=== PATIENT | male | born 1935 | race Caucasian/White ===

== ENCOUNTER 2017-08-04 12:56 | Outpatient (CLI) ==
[2015-11-02 16:17] VITALS: BMI 30.2
[2017-08-04 13:29] LABS: BASOPHILS # (AUTO) 0.1 K/uL (0-0.2); BASOPHILS % (AUTO) 0.4 % (0.0-3.0); EOSINOPHILS # (AUTO) 0.2 K/ul (0.0-0.7); EOSINOPHILS % (AUTO) 1.4 % (0.0-7.0); HEMATOCRIT 46.9 % (42.0-52.0); HEMOGLOBIN 15.8 g/dl (14.0-18.0); IMMATURE GRANULOCYTE % (AUTO) 0.4 % (0.0-5.0); LYMPHOCYTES # (AUTO) 3.6 K/uL (0.60-3.4); MEAN CORPUSCULAR HEMOGLOBIN 30.1 pg (27.0-31.0); MEAN CORPUSCULAR HGB CONC 33.7 (31.8-35.4); MEAN CORPUSCULAR VOLUME 89.3 fl (80.0-94.0); MONOCYTES # (AUTO) 1.5 K/uL (0.4-2.0); MONOCYTES % (AUTO) 10.9 (0-10); NEUTROPHILS # (AUTO) 8.5 K/ul (2.0-6.9); NEUTROPHILS % (AUTO) 60.9; PLATELET COUNT 241 10^3/uL (140-440); RED BLOOD COUNT 5.25 10^6/ul (4.70-6.10); WHITE BLOOD COUNT 13.89 K/ul (4.2-10.2)
--- NOTE | 2017-08-04 13:35 | DI ---
Exam: Three x-rays of the chest. Comparison: 01/21/2016. Reason for exam: Shortness of breath. FINDINGS: No pneumothorax, pleural effusion, or focal consolidation. The cardiac silhouette is not enlarged. Old granulomas disease is seen within the lung parenchyma and mediastinum. Similar appe aring scarring changes are seen in the right apex. Impression: No acute cardiopulmonary process.
[2017-08-04] MEDS ORDERED: ALBUTEROL 0.083% NEB NEB STA (13:39)
[2017-08-04 13:43] LABS: PROTHROMBIN TIME 15.4 SEC (9.3-11.0)
[2017-08-04 13:48] LABS: BILIRUBIN,URINE 1+ (NEGATIVE); KETONES,URINE Trace (NEGATIVE); LEUKOCYTE ESTERASE ,URINE Negative (NEGATIVE); NITRITE,URINE Negative (NEGATIVE); PH,URINE 5.5 (5-9); PROTEIN,URINE 1+ (NEGATIVE); URINE, BLOOD Negative (NEGATIVE)
[2017-08-04 13:49] LABS: ADD URINE MICROSCOPIC YES
[2017-08-04 13:56] LABS: ALBUMIN 3.5 g/dL (3.4-5.0); ALBUMIN/GLOBULIN RATIO 0.97; ANION GAP 21.7; BILIRUBIN,TOTAL 1.58 mg/dL (0.00-1.20); BUN/CREATININE RATIO 13.17; CHOL/HDL RATIO 4.4 (4.5-6.4); CREATININE 1.29 mg/dL (0.60-1.10); POTASSIUM 4.7 mmol/L (3.5-5.1); TOTAL PROTEIN 7.1 g/dL (5.8-8.1)
== END 2017-08-04 12:57 | disposition home or self-care (01) ==
LOC: CAR 12:56
PROVIDERS: ATTEND Emergency Medicine
DX: Z51.81 Encounter for therapeutic drug level monitoring (principal); Z79.01 Long term (current) use of anticoagulants; R06.02 Shortness of breath; I10 Essential (primary) hypertension; I49.9 Cardiac arrhythmia, unspecified; R35.0 Frequency of micturition
CPT/HCPCS: 36415; 80053; 80061; 81001; 84443; 85025; 85610; 94640

== ENCOUNTER 2017-08-10 08:14 | Outpatient (CLI) ==
[2015-11-02 16:17] VITALS: BMI 30.2
[2017-08-10 08:47] LABS: PROTHROMBIN TIME 16.2 SEC (9.3-11.0)
== END 2017-08-10 08:15 | disposition home or self-care (01) ==
LOC: LAB 08:14
PROVIDERS: ATTEND Emergency Medicine
DX: Z51.81 Encounter for therapeutic drug level monitoring (principal); Z79.01 Long term (current) use of anticoagulants
CPT/HCPCS: 36415; 85610

== ENCOUNTER 2017-08-16 13:57 | Outpatient (CLI) ==
[2015-11-02 16:17] VITALS: BMI 30.2
[2017-08-16 15:39] LABS: PROTHROMBIN TIME 21.8 SEC (9.3-11.0)
== END 2017-08-16 13:58 | disposition home or self-care (01) ==
LOC: LAB 13:57
PROVIDERS: ATTEND Emergency Medicine
DX: Z51.81 Encounter for therapeutic drug level monitoring (principal); Z79.01 Long term (current) use of anticoagulants
CPT/HCPCS: 36415; 85610

== ENCOUNTER 2017-12-29 12:56 | Outpatient (CLI) ==
[2015-11-02 16:17] VITALS: BMI 30.2
== END 2017-12-29 12:57 | disposition home or self-care (01) ==
LOC: LAB 12:56
PROVIDERS: ATTEND Emergency Medicine
DX: I10 Essential (primary) hypertension (principal); E78.5 Hyperlipidemia, unspecified; R97.20 Elevated prostate specific antigen [PSA]; Z79.899 Other long term (current) drug therapy
CPT/HCPCS: 36415; 80053; 80061; 81001; 84153; 85025

== ENCOUNTER 2018-04-27 10:21 | Outpatient (CLI) ==
[2015-11-02 16:17] VITALS: BMI 30.2
== END 2018-04-27 10:22 | disposition home or self-care (01) ==
LOC: FCC-LAB 10:21
PROVIDERS: ATTEND General Practice
DX: I10 Essential (primary) hypertension (principal); I49.9 Cardiac arrhythmia, unspecified; R09.89 Other specified symptoms and signs involving the circulatory and respiratory systems; J44.9 Chronic obstructive pulmonary disease, unspecified; M54.5 Low back pain; Z79.899 Other long term (current) drug therapy
CPT/HCPCS: 36415; 80053; 80061; 81001; 85025

== ENCOUNTER 2018-09-14 09:33 | Outpatient (CLI) ==
[2015-11-02 16:17] VITALS: BMI 30.2
== END 2018-09-14 09:34 | disposition home or self-care (01) ==
LOC: RHC-LAB 09:33
PROVIDERS: ATTEND General Practice
DX: I10 Essential (primary) hypertension (principal); I49.9 Cardiac arrhythmia, unspecified; R09.89 Other specified symptoms and signs involving the circulatory and respiratory systems; J44.9 Chronic obstructive pulmonary disease, unspecified; R97.20 Elevated prostate specific antigen [PSA]; Z79.899 Other long term (current) drug therapy
CPT/HCPCS: 36415; 80053; 80061; 81001; 85025

== ENCOUNTER 2019-01-16 08:12 | Outpatient (CLI) ==
[2015-11-02 16:17] VITALS: BMI 30.2
== END 2019-01-16 08:13 | disposition home or self-care (01) ==
LOC: RHC-LAB 08:12 → FCC-LAB 08:13
PROVIDERS: ATTEND General Practice
DX: J44.9 Chronic obstructive pulmonary disease, unspecified (principal); I10 Essential (primary) hypertension; R09.89 Other specified symptoms and signs involving the circulatory and respiratory systems; Z79.899 Other long term (current) drug therapy
CPT/HCPCS: 36415; 80053; 80061; 81001; 85025

== ENCOUNTER 2019-02-10 18:00 | Inpatient (IN) ==
[2019-02-10] MEDS ORDERED: DUONEB NEB STA (19:01)
--- NOTE | 2019-02-10 19:03 | ED.PDOC ---
General ED Provider: Dr. GEORGES SYLVESTER Chief Complaint: Shortness of Air Stated Complaint: Short of breath. Onset this morning. Has experienced progressive dyspnea all day as he participated in various activities.(going to [employer] and a ). 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 Time Seen by Physician: 18:30 Mode of Arrival: Wheelchair Information Source: Patient, Family [facility] and Triage Documentation Reviewed and Agree: Yes Does patient meet sepsis criteria?: No System Inflammatory Response Syndrome: Not Applicable Sepsis Protocol: For patient's 13 years and over: Temp is 96.8 and below OR 101 and greater Pulse >90 BPM Resp >20/minute Acutely Altered Mental Status Are patient's symptoms suggestive of a new infection, such as: -Pneumonia -Skin, Soft Tissue -Endocarditis -UTI -Bone, Joint Infection -Implantable Device -Acute Abdominal Infection -Wound Infection -Meningitis -Blood Stream Catheter Infection -Unknown Respiratory Complaint Exam - Shortness of Air Complaint/Exam Onset/Duration: 0800 Symptoms Are: Still present Timing: Constant Initial Severity: Mild Current Severity: Moderate Character: Reports: Dyspnea at rest, Dyspnea on exertion Aggravating: Reports: Movement, Recumbent position Alleviating: Reports: Upright position Associated Signs and Symptoms: Reports: Wheezing, Dizziness. Denies: Cough, Chest pain with cough, Chest pain, Fever, Chills, Diaphoresis, Nasal congestion , Calf pain, Calf swelling, Edema, Rapid breathing, Labored breathing, Decreased intake Related History: Reports: Similar episode History of Healthcare-Acquired Pneumonia: No Pulmonary Embolism Risk Factors: Reports: None Cardiac Risk Factors: Reports: CAD, Elevated lipids, Hypertension, CHF Pseudomonas Risk Factors: Reports: None Tuberculosis Risk Factors: Reports: None Recent Stress Test: No Respiratory Distress: None Stridor Present: No Tracheal Deviation: No Subcutaneous Emphysema: No Accessory Muscle Use: No Retractions: Not Present Diminished Breath Sounds: Yes Unable to Speak Full Sentences: No Fatigue: Yes Leg Swelling: No Daiana's Sign Present: No Grunting Respirations: No Kussmaul Respirations: No Differential Diagnoses: CHF, Pulmonary Edema, COPD Exacerbation, Pulmonary Embolism, URI Review of Systems - Review Of Systems Constitutional: Reports: No symptoms, Weakness Eyes: Reports: No symptoms Ears, Nose, Mouth, Throat: Reports: No symptoms Respiratory: Reports: No symptoms, Orthopnea, Short of air, Wheezing Cardiac: Reports: No symptoms, Irregular heart rate GI: Reports: No symptoms : Reports: No symptoms Musculoskeletal: Reports: No symptoms Skin: Reports: No symptoms Neurological: Reports: No symptoms Endocrine: Reports: No symptoms Hematologic/Lymphatic: Reports: No symptoms All Other Systems: Reviewed and Negative Past Medical History - Past Medical History Previously Healthy: Yes Endocrine: Reports: None Cardiovascular: Reports: Hypertension, A-Fib Respiratory: Reports: COPD Hematological: Reports: None Gastrointestinal: Reports: None Genitourinary: Reports: None Neuro/Psych: Reports: None, Unknown Musculoskeletal: Reports: None Cancer: Reports: None - Surgical History General Surgical History: Reports: Unknown - Family History Family History: Reports: Unknown - Social History Smoking Status: Former smoker Hx Substance Use: No Alcohol Screening: None Physical Exam - Physical Exam Appearance: Well-appearing, No pain distress, Well-nourished, Obese Ill-appearing: Mild Pain Distress: None Eyes: ERNIE, EOMI, Conjunctiva clear ENT: Ears normal, Nose normal, Oropharynx normal Neck: Supple (Neg jvd) Respiratory: Airway patent, Breath sounds clear, Breath sounds equal, Respirations nonlabored, Wheezes Cardiovascular: RRR, Pulses normal, No rub, No murmur GI/: Soft, Nontender, No masses, Bowel sounds normal, No Organomegaly Musculoskeletal: Normal strength, ROM intact, No edema, No calf tenderness Skin: Warm, Dry, Normal color Neurological: Sensation intact, Motor intact, Reflexes intact, Cranial nerves intact, Alert, Oriented Psychiatric: Affect appropriate, Mood appropriate Interpretation - Radiology Interpretation Radiology Results: No acute changes Exam Interpreted: Portable CXR Exam Interpreted: CT Scan (NO PE/Nodular foci RLL and STEVEN warrant follow up ) Physician Notification - Case Discussed Physician Notified: Dr Lennon Time of Notification: 21:00 (agrees with admit) Physician Notified: Dr Simmons covering until results CTA chest obtained Time of Notification: 21:20 Critical Care Note - Critical Care Note Total Time (mins): 120 Course - Course Hematology/Chemistry: 02/11/19 03:15 02/11/19 03:15 Orders, Labs, Meds: Lab Review 02/10/19 02/10/19 02/10/19 18:10 19:14 19:42 WBC 6.38 RBC 4.95 Hgb 14.6 Hct 45.1 MCV 91.1 MCH 29.5 MCHC 32.4 RDW Coeff of Angeline 13.5 Plt Count 122 L Immature Gran % (Auto) 0.3 Neut % (Auto) 57.3 Lymph % (Auto) 29.5 [place] % (Auto) 11.0 H Eos % (Auto) 1.3 Baso % (Auto) 0.6 Immature Gran # (Auto) 0.0 Neut # (Auto) 3.7 Lymph # (Auto) 1.9 [place] # (Auto) 0.7 Eos # (Auto) 0.1 Baso # (Auto) 0.0 PT INR D-Dimer (Manual) Puncture Site Rbrach O2 Saturation 94.0 L ABG pH 7.376 ABG pCO2 42.0 ABG pO2 72.0 L ABG HCO3 24.6 ABG Total CO2 26 ABG Base Excess -1 Wilmer Test + FiO2 % 21.0 Sodium Potassium Chloride Carbon Dioxide Anion Gap BUN Creatinine Estimated GFR (MDRD) BUN/Creatinine Ratio Glucose Lactic Acid Calcium Total Bilirubin AST ALT Alkaline Phosphatase Troponin I NT-Pro-B Natriuret Pep Total Protein Albumin Globulin Albumin/Globulin Ratio Procalcitonin Urine Color Yellow Urine Clarity Clear Urine pH 5.5 Ur Specific [place] 1.020 Urine Protein Negative Urine Glucose (UA) Negative Urine Ketones Negative Urine Blood Trace-lysed Urine Nitrite Negative Urine Bilirubin Negative Urine Urobilinogen 1.0 Ur Leukocyte Esterase Negative Urine Microscopic RBC 0-2 Urine Microscopic WBC 0-2 Ur Squamous Epith Cells 0-2 Urine Bacteria Trace 02/10/19 02/10/19 02/10/19 19:42 19:42 19:42 WBC RBC Hgb Hct MCV MCH MCHC RDW Coeff of Angeline Plt Count Immature Gran % (Auto) Neut % (Auto) Lymph % (Auto) [place] % (Auto) Eos % (Auto) Baso % (Auto) Immature Gran # (Auto) Neut # (Auto) Lymph # (Auto) [place] # (Auto) Eos # (Auto) Baso # (Auto) PT INR D-Dimer (Manual) 516.32 Puncture Site O2 Saturation ABG pH ABG pCO2 ABG pO2 ABG HCO3 ABG Total CO2 ABG Base Excess Wilmer Test FiO2 % Sodium 138.4 Potassium 4.38 Chloride 101.1 Carbon Dioxide 28.7 Anion Gap 12.98 BUN 16.9 Creatinine 1.09 Estimated GFR (MDRD) 64.00 BUN/Creatinine Ratio 15.50 Glucose 111.9 H Lactic Acid Calcium 9.50 Total Bilirubin 1.36 H AST 31.8 ALT 21.4 Alkaline Phosphatase 89.0 Troponin I < 0.012 NT-Pro-B Natriuret Pep 826.000 H Total Protein 6.94 Albumin 4.24 Globulin 2.70 Albumin/Globulin Ratio 1.57 Procalcitonin < 0.05 Urine Color Urine Clarity Urine pH Ur Specific [place] Urine Protein Urine Glucose (UA) Urine Ketones Urine Blood Urine Nitrite Urine Bilirubin Urine Urobilinogen Ur Leukocyte Esterase Urine Microscopic RBC Urine Microscopic WBC Ur Squamous Epith Cells Urine Bacteria 02/10/19 02/10/19 19:42 19:42 WBC RBC Hgb Hct MCV MCH MCHC RDW Coeff of Angeline Plt Count Immature Gran % (Auto) Neut % (Auto) Lymph % (Auto) [place] % (Auto) Eos % (Auto) Baso % (Auto) Immature Gran # (Auto) Neut # (Auto) Lymph # (Auto) [place] # (Auto) Eos # (Auto) Baso # (Auto) PT 18.8 H INR 1.92 D-Dimer (Manual) Puncture Site O2 Saturation ABG pH ABG pCO2 ABG pO2 ABG HCO3 ABG Total CO2 ABG Base Excess Wilmer Test FiO2 % Sodium Potassium Chloride Carbon Dioxide Anion Gap BUN Creatinine Estimated GFR (MDRD) BUN/Creatinine Ratio Glucose Lactic Acid 1.12 Calcium Total Bilirubin AST ALT Alkaline Phosphatase Troponin I NT-Pro-B Natriuret Pep Total Protein Albumin Globulin Albumin/Globulin Ratio Procalcitonin Urine Color Urine Clarity Urine pH Ur Specific [place] Urine Protein Urine Glucose (UA) Urine Ketones Urine Blood Urine Nitrite Urine Bilirubin Urine Urobilinogen Ur Leukocyte Esterase Urine Microscopic RBC Urine Microscopic WBC Ur Squamous Epith Cells Urine Bacteria Orders Category Date Time Status ABG DRAW REQUEST Stat CARDIO 02/10/19 19:01 Completed ECHOCARDIOGRAM 2D-M MODE Routine CARDIO 02/11/19 21:07 Completed EKG-(ED ONLY) Stat CARDIO 02/10/19 18:58 Completed NEBULIZER TREATMENT Routine CARDIO 02/10/19 21:06 Active NEBULIZER TREATMENT Stat CARDIO 02/10/19 19:02 Completed OXYGEN Routine CARDIO 02/10/19 21:04 Active ACTIVITY .BR with BRP CARE 02/10/19 21:05 Active INTAKE & OUTPUT Q8HR CARE 02/10/19 21:04 Active INTAKE & OUTPUT Q8HR CARE 02/10/19 21:07 Completed NPO REMINDER: IMAGING ONCE CARE 02/10/19 20:58 Completed VITAL SIGNS Q8HR CARE 02/10/19 21:04 Active REGULAR DIET DIETARY 02/10/19 Breakfast Ordered ABG Stat LAB 02/10/19 18:10 Completed BLOOD CULTURE Stat LAB 02/10/19 19:42 Results CBC W/ AUTO DIFF DAILY@0600 LAB 02/11/19 03:15 Completed CBC W/ AUTO DIFF DAILY@0600 LAB 02/12/19 06:00 Ordered CBC W/ AUTO DIFF Stat LAB 02/10/19 19:42 Completed CMP [COMPREHENSIVE METABOLIC PANEL] Stat LAB 02/10/19 19:42 Completed COMPREHENSIVE METABOLIC PANEL DAILY@0600 LAB 02/12/19 06:00 Ordered CREATINE KINASE Q8H LAB 02/11/19 03:15 Completed CREATINE KINASE Q8H LAB 02/11/19 11:10 Completed D-DIMER Stat LAB 02/10/19 19:42 Completed LACTIC ACID Stat LAB 02/10/19 19:42 Completed NT-PROBNP Stat LAB 02/10/19 19:42 Completed PROCALCITONIN Stat LAB 02/10/19 19:42 Completed PT WITH INR DAILY@0600 LAB 02/11/19 03:15 Completed PT WITH INR DAILY@0600 LAB 02/12/19 06:00 Ordered PT WITH INR Stat LAB 02/10/19 19:42 Completed SPUTUM CULTURE Stat LAB 02/10/19 19:58 Results TROPONIN I Q8H LAB 02/11/19 03:15 Completed TROPONIN I Q8H LAB 02/11/19 11:10 Completed TROPONIN I Stat LAB 02/10/19 19:42 Completed UA [URINALYSIS C & S IF INDICATED] Stat LAB 02/10/19 19:14 Completed 0.9 % Sodium Chloride [Saline Flush] MEDS 02/10/19 19:01 Discontinued 1 syr IVF PRN PRN Budesonide/Formoterol Fumarate [Symbicort 160-4.5 Mcg MEDS 02/11/19 09:00 Active Inhaler] 2 puff IH BID Enoxaparin Sodium [Lovenox] MEDS 02/10/19 21:30 Discontinued 30 mg SUBCUT DAILY Furosemide [Lasix] MEDS 02/10/19 21:11 Discontinued 20 mg IVP ONCE STA Hydrocortisone Sod Succ/Pf [Solu-Cortef 250 mg] MEDS 02/10/19 21:30 Active 125 mg IVP Q6HR Ipratropium/Albuterol Neb [Duoneb] MEDS 02/10/19 19:01 Discontinued 1 vial NEB ONCE STA Ipratropium/Albuterol Neb [Duoneb] MEDS 02/10/19 21:04 Discontinued 1 vial NEB RTQ6H PRN Losartan Potassium [Cozaar] MEDS 02/10/19 21:30 Active 25 mg PO DAILY Propafenone HCl [Rythmol] MEDS 02/10/19 21:15 Discontinued 300 mg PO Q8H Warfarin Sodium [Coumadin] MEDS 02/10/19 21:30 Discontinued 2.5 mg PO SuTuWeFrSa Warfarin Sodium [Coumadin] MEDS 02/11/19 21:12 Active 5 mg PO MoTh@1700 RESUSCITATION STATUS Routine OTHERS 02/10/19 21:04 Ordered CHEST, 1V AP ONLY Stat RADS 02/10/19 18:[address] CHEST PE PROTOCOL Stat RADS 02/10/19 20:56 Completed Medications Generic Name Dose Route Start Last Admin Trade Name Freq PRN Reason Stop Dose Admin Albuterol/Ipratropium 1 vial 02/11/19 00:00 02/11/19 17:09 Duoneb NEB 1 vial RTQ6H JOVI Administration Atorvastatin Calcium 20 mg 02/11/19 09:00 02/11/19 08:38 Lipitor PO 20 mg DAILY JOVI Administration Azithromycin 500 mg 02/11/19 09:00 02/11/19 08:56 Zithromax PO 02/14/19 08:59 500 mg DAILY JOVI Administration Budesonide/Formoterol Fumarate 2 puff 02/11/19 09:00 02/11/19 08:37 Symbicort 160-4.5 Mcg Inhaler IH 2 puff BID JOVI Administration Enalaprilat 1.25 mg 02/10/19 22:39 Vasotec Iv IVP Q6H PRN Systolic >160 Hydrocortisone Sodium Succinate 125 mg 02/10/19 21:30 02/11/19 18:01 Solu-Cortef 250 Mg IVP 125 mg Q6HR JOVI Administration Losartan Potassium 25 mg 02/10/19 21:30 02/11/19 08:38 Cozaar PO 25 mg DAILY JOVI Administration Propafenone HCl 300 mg 02/11/19 13:00 02/11/19 12:39 Rythmol PO 300 mg Q8HR JOVI Administration Sodium Chloride 1 syr 02/11/19 21:00 Saline Flush IVF Q8HR JOVI Warfarin Sodium 5 mg 02/11/19 21:12 Coumadin PO MoTh@1700 JOVI Warfarin Sodium 2.5 mg 02/12/19 17:00 Coumadin PO SuTuWeFrSa@1700 JOVI Discontinued Medications Generic Name Dose Route Start Last Admin Trade Name Freq PRN Reason Stop Dose Admin Albuterol/Ipratropium 1 vial 02/10/19 19:01 02/10/19 19:15 Duoneb NEB 02/10/19 19:02 1 vial ONCE STA Administration Albuterol/Ipratropium 1 vial 02/10/19 21:04 Duoneb NEB RTQ6H PRN Wheezing Enalaprilat 1.25 mg 02/10/19 22:36 02/10/19 23:01 Vasotec Iv IVP 02/10/19 22:37 1.25 mg ONCE STA Administration Enoxaparin Sodium 30 mg 02/10/19 21:30 02/10/19 23:12 Lovenox SUBCUT Not Given DAILY [facility] Furosemide 20 mg 02/10/19 21:11 02/10/19 23:00 Lasix IVP 02/10/19 21:12 20 mg ONCE STA Administration Non-Formulary Medication 300 mg 02/10/19 21:15 02/11/19 05:21 Propafenone Hcl [Rythmol] PO Not Given Q8H [facility] Sodium Chloride 1 syr 02/10/19 19:01 Saline Flush IVF PRN PRN To flush IV Warfarin Sodium 2.5 mg 02/10/19 21:30 02/10/19 23:01 Coumadin PO 2.5 mg SuTuWeFrSa JOVI Administration Vital Signs: Temp Pulse Resp BP Pulse Ox 02/10/19 18:01 100.7 F H 95 H 24 204/69 H 95 Departure - Departure Time of Disposition: 21:15 (Spoke with Dr Lennon who agreed with admit and work up) Disposition: ADMITTED INPATIENT Discharge Problem: Dyspnea, CHF (congestive heart failure) Condition: Serious Pt referred to PMD for follow-up: Yes (Dr Horowitz) IPMP verified?: No Allergies/Adverse Reactions: Allergies No Known Drug Allergies Adverse Reaction (Verified 02/10/19 18:06) Home Medications: Ambulatory Orders Propafenone HCl [Rythmol] 300 mg PO Q8H 07/23/15 Warfarin Sodium [Coumadin] 2.5 mg PO SuTuWeFrSa 07/23/15 Warfarin Sodium [Coumadin] 5 mg PO MoTh 07/23/15 Acetaminophen/Diphenhydramine [Acetaminophen Pm Caplet] 1 each PO BEDTIME Transfer Form Completed: No Disposition Discussed With: Patient, Family, Other (Dr Lennon/Will admit for DR Avilez after CT A PEP obtained)
[2019-02-10] MEDS ORDERED: DUONEB NEB PRN (21:04)
[2019-02-10] MEDS ORDERED: LASIX IVP STA (21:11)
--- NOTE | 2019-02-10 21:11 | DI ---
EXAM: Single-view chest HISTORY: Shortness of breath COMPARISON: Two-view chest 08/04/2017 FINDINGS: The cardiac silhouette is normal in size. Atherosclerotic changes are seen involving the aortic arch.. They are benign granulomatous changes without evidence of active pulmonary disease IMPRESSION: No evidence of active pulmonary disease.
[2019-02-10] MEDS ORDERED: COUMADIN PO SCH (21:30)
[2019-02-10] MEDS ORDERED: LOVENOX SUBCUT SCH (21:30)
--- NOTE | 2019-02-10 22:12 | CT ---
EXAM: CTA thorax HISTORY: Shortness of breath COMPARISON: CT scan chest 11/02/2015 FINDINGS: Contiguous axial images obtained through the chest following uneventful administration int ravenous contrast utilizing 3-mm collimation. Sagittal and coronal reconstructions were imaged and r eviewed.. Source images were utilized to create rotating 3-D MIP images.. The thoracic inlet is unre markable. There are subcentimeter prevascular, pretracheal and right hilar lymph nodes. The heart i s normal in size without pericardial effusion.. There is no evidence of pulmonary embolus. The asce nding aorta is ectatic measuring 3.1 cm. There is dependent atelectasis in the right posterior gutt er region. . There is 1.3 cm nodular focus at the right lung base which merits follow-up pelvis is noted anteriorly within the lobe measuring 7.9 mm. Bone windows reveals no evidence of lytic or constanza tic lesions Impression: No evidence of pulmonary embolus. Nodular foci within the right lower lobe and left upper lobe which merit follow-up to ensure resoluti on.. Dependent atelectasis right lung base
[2019-02-10] MEDS ORDERED: VASOTEC IV IVP STA (22:36)
[2019-02-10] MEDS ORDERED: VASOTEC IV IVP PRN (22:39)
[2019-02-10] MEDS ORDERED: RYTHMOL PO ONE (22:55)
[2019-02-10] MEDS: SOLU-CORTEF 250 MG IVP SCH (23:00)
[2019-02-10] MEDS: COZAAR PO SCH (23:00)
[2019-02-10] MEDS: PROPAFENONE HCL 300 MG PO SCH (23:10)
[2019-02-10 23:30] VITALS: BMI 32.1
[2019-02-11] MEDS: DUONEB NEB SCH ×4 (00:10→17:09)
[2019-02-11] MEDS: SOLU-CORTEF 250 MG IVP SCH ×4 (01:06→18:01)
[2019-02-11] MEDS ORDERED: RYTHMOL PO ONE (05:12)
[2019-02-11] MEDS: PROPAFENONE HCL 300 MG PO SCH (05:21)
[2019-02-11] MEDS: SYMBICORT 160-4.5 MCG INHALER IH SCH ×2 (08:37→21:02)
[2019-02-11] MEDS: COZAAR PO SCH (08:38)
[2019-02-11] MEDS: LIPITOR PO SCH (08:38)
[2019-02-11] MEDS: ZITHROMAX PO SCH (08:56)
--- NOTE | 2019-02-11 09:35 | HP ---
DATE OF SERVICE: 02/11/19 HISTORY OF PRESENT ILLNESS: This 84 year old WHITE/ M was hospitalized 02/10/19 with dyspnea, shortness of breath, cough and congestion with yellowish sputum production. PAST MEDICAL HISTORY: Atrial fibrillation Chronic lung disease Chronic bronchitis Dyslipidemia Hypertension PAST SURGICAL HISTORY: Tonsillectomy as a child Bilateral cataract extraction Previous hemorrhoidectomy REVIEW OF SYSTEMS: CONSTITUTIONAL: Fatigue and tired feeling. No night sweats. No malaise, lethargy. No fever or chills. HEENT: Eyes: No visual changes. No eye pain. No eye discharge. ENT: No runny nose. No epistaxis. No sinus pain. No sore throat. No odynophagia. No ear pain. No congestion. RESPIRATORY: Cough and congestion. Yellow sputum. No hemoptysis. No shortness of breath. CARDIOVASCULAR: No angina symptoms. No CHF symptoms. No atypical chest pain for CAD. No exertional chest discomfort. No palpitations. No PND. No orthopnea. GASTROINTESTINAL: No abdominal pain. No nausea or vomiting. No diarrhea or constipation. No hematemesis. No hematochezia. GENITOURINARY: No urgency. No frequency. No dysuria. No hematuria. No obstructive symptoms. No discharge. No pain. No significant abnormal bleeding. MUSCULOSKELETAL: No musculoskeletal pain. No joint swelling. No arthritis. NEUROLOGICAL: No headache. No neck pain. No syncope. No seizures. No dizziness. PSYCHIATRIC: Not anxious. No depression. No suicidal thoughts. No homicidal thoughts. SKIN: No rash. No lesions. No wounds. ENDOCRINE: No unexplained weight loss. No weight gain. HEMATOLOGIC/LYMPHATIC: No anemia. No purpura. No petechiae. No prolonged or excessive bleeding. No palpable lymph nodes. PERSONAL/FAMILY/SOCIAL HISTORY: , lives with . No alcohol abuse. No illicit drug use. Former smoker. MEDICATIONS: (Home) Coumadin 2.5 mg p.o. SunTuesWedFriSat Coumadin 5 mg p.o. MonThurs Rythmol 300 mg p.o. q.8hr Ventolin HFA 8 gm IH t.i.d. Budesonide/Formoterol 10.2 gm IH b.i.d. Cozaar 25 mg p.o. daily Lipitor 20 mg p.o. daily Acetaminophen/Diphenhydramine one each p.o. bedtime ALLERGIES: NKDA PHYSICAL EXAMINATION: GENERAL: The patient is awake, alert and oriented, lying/sitting in bed in no distress. VITAL SIGNS: Temperature 97.6 F, Pulse 62, Respiratory Rate 14, BP 126/56, Pulse Ox 97% HEENT: Head normocephalic, atraumatic. Eyes: Extraocular muscles are intact. Pupils are equal, round and reactive to light and accommodation. Ears: No lesions. Nose appeared normal. Throat: No exudate or erythema. NECK: Supple. No JVD, no carotid bruit. No lymphadenopathy or thyromegaly. LUNGS: Decreased breath sounds with mild wheeze. Percussion note normal. Chest symmetrical. HEART: S1, S2, no S3. No murmurs. No cyanosis or clubbing. No ascites. Pulses: Dorsalis pedis and posterior tibial pulses +1 to +2 bilaterally. ABDOMEN: Soft. Nontender. Bowel sounds active. No CVA tenderness. No mass felt. EXTREMITIES: No edema. Full range of motion of all extremities, equal. NEUROLOGIC: No focal deficit. Cranial nerves II through XII are grossly intact. No headache, no double vision or headache. SKIN: Not dry. Intact. Turgor - normal. LYMPHATIC: No palpable lymph nodes/no lymphedema. MUSCULOSKELETAL: Normal joints with no swelling. Muscle tone is normal. LAB REVIEW: 02/11/19 03:15: PT 15.6 H, INR 1.58 02/11/19 03:15: WBC 6.33, RBC 4.59 L, Hgb 13.5 L, Hct 41.4 L, MCV 90.2, MCH 29.4 , MCHC 32.6, RDW Coeff of Angeline 13.4, Plt Count 124 L, Immature Gran % (Auto) 0.2 , Neut % (Auto) 64.6, Lymph % (Auto) 27.5, [place] % (Auto) 7.0, Eos % (Auto) 0.2, Baso % (Auto) 0.5, Immature Gran # (Auto) 0.0, Neut # (Auto) 4.1, Lymph # (Auto ) 1.7, [place] # (Auto) 0.4, Eos # (Auto) 0.0, Baso # (Auto) 0.0 02/11/19 03:15: Sodium 136.4, Potassium 4.32, Chloride 100.6, Carbon Dioxide 28.0, Anion Gap 12.12, BUN 18.5, Creatinine 1.19 H, Estimated GFR (MDRD) 58.00, BUN/Creatinine Ratio 15.54, Glucose 146.9 H, Calcium 8.93, Total Bilirubin 1.40 H, AST 29.8, ALT 18.8, Alkaline Phosphatase 76.9, Total Creatine Kinase 212.1 H , CK-MB (CK-2) 2.110, CK-MB (CK-2) % 0.9900, Troponin I < 0.012, Total Protein 6.15 L, Albumin 3.60, Globulin 2.55, Albumin/Globulin Ratio 1.41 02/10/19 19:42: PT 18.8 H, INR 1.92 02/10/19 19:42: Lactic Acid 1.12 02/10/19 19:42: Procalcitonin < 0.05 02/10/19 19:42: D-Dimer (Manual) 516.32 02/10/19 19:42: Sodium 138.4, Potassium 4.38, Chloride 101.1, Carbon Dioxide 28.7, Anion Gap 12.98, BUN 16.9, Creatinine 1.09, Estimated GFR (MDRD) 64.00, BUN/Creatinine Ratio 15.50, Glucose 111.9 H, Calcium 9.50, Total Bilirubin 1.36 H, AST 31.8, ALT 21.4, Alkaline Phosphatase 89.0, Troponin I < 0.012, NT-Pro-B Natriuret Pep 826.000 H, Total Protein 6.94, Albumin 4.24, Globulin 2.70, Albumin/Globulin Ratio 1.57 02/10/19 19:42: WBC 6.38, RBC 4.95, Hgb 14.6, Hct 45.1, MCV 91.1, MCH 29.5, MCHC 32.4, RDW Coeff of Angeline 13.5, Plt Count 122 L, Immature Gran % (Auto) 0.3, Neut % (Auto) 57.3, Lymph % (Auto) 29.5, [place] % (Auto) 11.0 H, Eos % (Auto) 1.3 , Baso % (Auto) 0.6, Immature Gran # (Auto) 0.0, Neut # (Auto) 3.7, Lymph # ( Auto) 1.9, [place] # (Auto) 0.7, Eos # (Auto) 0.1, Baso # (Auto) 0.0 02/10/19 19:14: Urine Color Yellow, Urine Clarity Clear, Urine pH 5.5, Ur Specific [place] 1.020, Urine Protein Negative, Urine Glucose (UA) Negative, Urine Ketones Negative, Urine Blood Trace-lysed, Urine Nitrite Negative, Urine Bilirubin Negative, Urine Urobilinogen 1.0, Ur Leukocyte Esterase Negative, Urine Microscopic RBC 0-2, Urine Microscopic WBC 0-2, Ur Squamous Epith Cells 0- 2, Urine Bacteria Trace 02/10/19 18:10: Puncture Site Rbrach, O2 Saturation 94.0 L, ABG pH 7.376, ABG pCO2 42.0, ABG pO2 72.0 L, ABG HCO3 24.6, ABG Total CO2 26, ABG Base Excess -1, Wilmer Test +, FiO2 % 21.0 ASSESSMENT: 1. Shortness of breath likely from acute bronchitis 2. Chronic lung disease 3. History of cardiomyopathy 4. Atrial fibrillation 5. Hypertension 6. Dyslipidemia 7. BMI 32 8. Sedentary lifestyle PLAN: 1. Telemetry 2. Serial EKGs 3. Cardiac markers 4. Echocardiogram to evaluate LV function 5. Continue all medications 6. Zithromax 500 mg daily for 3 days 7. Steroids 8. PFT 9. Nebs treatment q.6hr 10. Prednisone 20 mg daily CONDITION: Stable Plan and coordination of the patient's care discussed in the presence of Friction Saw Operator and nurse. SCRIBED BY: REN NGUYỄN, Laborer Tin Can scribed while in presence of service performed by Dr. MELODY [facility] on 02/11/19 ([id number]) TIME SPENT: More than 70 minutes. NIVIA
[2019-02-11] MEDS: RYTHMOL PO SCH ×2 (12:39→21:02)
[2019-02-11] MEDS ORDERED: COUMADIN PO SCH (21:12)
[2019-02-12] MEDS: SOLU-CORTEF 250 MG IVP SCH ×2 (00:03→05:43)
[2019-02-12] MEDS: DUONEB NEB SCH ×2 (00:05→04:42)
[2019-02-12] MEDS: RYTHMOL PO SCH (05:44)
[2019-02-12 05:55] VITALS: BP 146/71; TEMP 97.7
[2019-02-12] MEDS: LIPITOR PO SCH (08:49)
[2019-02-12] MEDS: COZAAR PO SCH (08:49)
[2019-02-12] MEDS: ZITHROMAX PO SCH (08:49)
[2019-02-12] MEDS: SYMBICORT 160-4.5 MCG INHALER IH SCH (08:50)
--- NOTE | 2019-02-12 09:10 | DS ---
DATE OF SERVICE: 02/12/19 FINAL DIAGNOSIS: 1. ACUTE BRONCHITIS 2. DYSPNEA 3. CHF 4. COPD, MODERATE PER PFT 2016 5. ATRIAL FIBRILLATION (ON COUMADIN) 6. DYSLIPIDEMIA 7. GERD 8. PNEUMONIA (2013) 9. PREVIOUS SMOKER 10. CATARACT EXTRACTION, BILATERAL 11. TONSILLECTOMY 12. HEMORRHOIDECTOMY LAST VITALS: Temperature 97.7, pulse 73, respiratory rate 16, BP 146/71, Pulse ox 98. DISCHARGE INSTRUCTIONS: Followup appointment has been scheduled with Dr. Avilez, PCP on February 15, 2019 at 1 p.m. at [facility], [place] on [address] MEDICATIONS AT DISCHARGE: Atorvastatin Calcium (Lipitor) 20 mg PO DAILY [facility] Last Admin: 02/12/19 08:49 Dose: 20 mg Azithromycin (Zithromax) 500 mg PO DAILY [facility] Stop: 02/14/19 08:59 Last Admin: 02/12/19 08:49 Dose: 500 mg Budesonide/Formoterol Fumarate (Symbicort 160-4.5 Mcg Inhaler) 2 puff IH BID [facility] Last Admin: 02/12/19 08:50 Dose: 2 puff Losartan Potassium (Cozaar) 25 mg PO DAILY [facility] Last Admin: 02/12/19 08:49 Dose: 25 mg Propafenone HCl (Rythmol) 300 mg PO Q8HR [facility] Last Admin: 02/12/19 05:44 Dose: 300 mg Warfarin Sodium (Coumadin) 5 mg PO MoTh@1700 [facility] Last Admin: 02/11/19 21:02 Dose: 5 mg Warfarin Sodium (Coumadin) 2.5 mg PO SuTuWeFrSa@1700 [facility] DISCONTINUED MEDICATIONS: None NEW PRESCRIPTIONS: Prednisone 20 mg daily for 5 days Azithromycin 500 mg daily for one day DIET INSTRUCTIONS: Regular as tolerated. ACTIVITY: Resume activity. SMOKING: N/A (DOES NOT SMOKE) DISEASE SPECIFIC EDUCATION: Use of steroids and risk of GI upset Medications Appointment HOSPITAL COURSE: 84-year-old White/ male hospitalized with shortness of breath. The patient's D. dimer was borderline positive. CT angiogram was negative for pulmonary embolus. Cardiac markers normal and EKG remained unchanged with no acute changes. The patient had evidence of bronchitis with yellowish sputum , cough and congestion which resolved with steroids, nebs and antibiotics. The patient is up and about. No symptoms of CHF or coronary insufficiency. INR is acceptable. The patient is followed by primary care physician, Dr. Avilez and powder hand. Condition is stable. TIME SPENT: More than 60 minutes. NIVIA
--- NOTE | 2019-02-12 09:11 | PCM.PROG ---
Attending Provider: ATTENDING PROVIDER: [facility] DATE OF SERVICE: 02/12/19 SUBJECTIVE: This 84 year old WHITE/ M was hospitalized 02/10/19 with acute bronchitis; the main complaint was shortness of breath. The patient is doing a lot better. He is up and about. No shortness of breath as he described. REVIEW OF SYSTEMS: CONSTITUTIONAL: No night sweats. No fatigue, malaise, lethargy. No fever or chills. HEENT: Eyes: No visual changes. No eye pain. No eye discharge. ENT: No runny nose. No epistaxis. No sinus pain. No odynophagia. No congestion. RESPIRATORY: No cough, no congestion. No hemoptysis. No shortness of breath. CARDIOVASCULAR: No angina symptoms. No CHF symptoms. No atypical chest pain for CAD. No palpitations. No orthopnea.. GASTROINTESTINAL: No abdominal pain. No nausea or vomiting. No diarrhea or constipation. No hematemesis. No hematochezia. GENITOURINARY: No urgency. No frequency. No dysuria. No hematuria. No obstructive symptoms. No discharge. No pain. No significant abnormal bleeding. MUSCULOSKELETAL: No musculoskeletal pain; no joint swelling. NEUROLOGICAL: Awake, alert, oriented to time, place and person. No headache. No neck pain. No syncope. No seizures. No dizziness. PSYCHIATRIC: Not anxious. No depression. No suicidal thoughts. No homicidal thoughts. SKIN: No rash. No lesions. No wounds. ENDOCRINE: No unexplained weight loss. No weight gain. HEMATOLOGIC/LYMPHATIC: No anemia. No purpura. No petechiae. No prolonged or excessive bleeding. No palpable lymph nodes. PHYSICAL EXAMINATION: GENERAL: The patient is awake, alert and oriented, sitting in bed in no distress. VITAL SIGNS: Temperature 97.7 F, Pulse 73, Respiratory Rate 16, BP 146/71, Pulse Ox 98% HEENT: Head normocephalic, atraumatic. Eyes: Extraocular muscles are intact. Pupils are equal, round and reactive to light and accommodation. Ears: No lesions. Nose appeared normal. Throat: No exudate or erythema. NECK: Supple. No JVD, no carotid bruit. No lymphadenopathy or thyromegaly. LUNGS: Clear to auscultation. Percussion note normal. Chest symmetrical. HEART: S1, S2, no S3. No murmurs. No cyanosis or clubbing. No ascites. Pulses: Dorsalis pedis and posterior tibial pulses +1 to +2 both sides. ABDOMEN: Soft. Non-tender. Bowel sounds active. No CVA tenderness. No mass felt. EXTREMITIES: No edema. Full range of motion of all extremities, equal. NEUROLOGIC: No focal deficit. Cranial nerves II through XII are grossly intact. No headache, no double vision or headache. SKIN: Warm and dry. Intact. Turgor-normal. LYMPHATIC: No palpable lymph nodes/no lymphedema. MUSCULOSKELETAL: Normal joints with no swelling. Muscle tone is normal. LAB REVIEW: 02/12/19 05:11 02/12/19 05:11 02/12/19 05:11: Sodium 135.3, Potassium 3.97, Chloride 102.4, Carbon Dioxide 25.7, Anion Gap 11.17, BUN 24.0 H, Creatinine 0.99, Estimated GFR (MDRD) 72.00, BUN/Creatinine Ratio 24.24, Glucose 164.8 H, Calcium 9.00, Total Bilirubin 0.63 , AST 38.0, ALT 21.5, Alkaline Phosphatase 66.9, Total Protein 6.08 L, Albumin 3.52, Globulin 2.56, Albumin/Globulin Ratio 1.37 02/12/19 05:11: PT 18.4 H, INR 1.87 02/12/19 05:11: WBC 6.47, RBC 4.47 L, Hgb 13.3 L, Hct 39.9 L, MCV 89.3, MCH 29.8 , MCHC 33.3, RDW Coeff of Angeline 13.3, Plt Count 134 L, Immature Gran % (Auto) 0.3 , Neut % (Auto) 70.9, Lymph % (Auto) 25.2, [place] % (Auto) 3.6, Eos % (Auto) 0.0, Baso % (Auto) 0.0, Immature Gran # (Auto) 0.0, Neut # (Auto) 4.6, Lymph # (Auto ) 1.6, [place] # (Auto) 0.2 L, Eos # (Auto) 0.0, Baso # (Auto) 0.0 02/11/19 11:10: Total Creatine Kinase 328.5 H, CK-MB (CK-2) 3.080 H, CK-MB (CK-2 ) % 0.9300, Troponin I < 0.012 ASSESSMENT: 1. Acute bronchitis seems to have resolved. 2. Hypertension. 3. Atrial fibrillation. 4. Dyslipidemia. 5. Chronic lung disease - all the above stable. PLAN: 1. Discharge the patient home on Zithromax and steroids. 2. The patient is to be followed by Dr. Avilez on Monday. Plan and coordination of the patient's care discussed in the presence of Explosives Engineer and nurse. CONDITION: Stable SCRIBED BY: REN NGUYỄN Welding Machine Operator scribed while in presence of service performed by Dr. MELODY [facility] on 02/12/19 ([id number])
--- NOTE | 2019-02-12 09:16 | PN ---
CODING FOR BILLIN02/10/19 ADMISSION DAY - LEVEL 5 02/11/19 INTERMEDIATE 02/12/19 DISCHARGE MTDD
--- NOTE | 2019-02-12 09:26 | CM.DICTOOL ---
ADMISSION: 02/10/19 21:27 DISCHARGE: FEBRUARY 12, 2019 DATE OF SERVICE: 02/12/19 FINAL DIAGNOSIS ACUTE BRONCHITIS DYSPNEA CHF COPD, MODERATE PER PFT 2016 ATRIAL FIBRILLATION (ON COUMADIN) DYSLIPIDEMIA GERD PNEUMONIA (2013) PREVIOUS SMOKER CATARACT EXTRACTION, BILATERAL TONSILLECTOMY HEMORRHOIDECTOMY LAST VITALS Temp Pulse Resp BP Pulse Ox 97.7 F 73 16 146/71 H 98 02/12/19 05:54 02/12/19 05:54 02/12/19 05:54 02/12/19 05:54 02/12/19 05:54 TAKE THESE MEDICATIONS AT HOME Atorvastatin Calcium (Lipitor) 20 mg PO DAILY [facility] Last Admin: 02/12/19 08:49 Dose: 20 mg Azithromycin (Zithromax) 500 mg PO DAILY [facility] Stop: 02/14/19 08:59 Last Admin: 02/12/19 08:49 Dose: 500 mg Budesonide/Formoterol Fumarate (Symbicort 160-4.5 Mcg Inhaler) 2 puff IH BID [facility] Last Admin: 02/12/19 08:50 Dose: 2 puff Losartan Potassium (Cozaar) 25 mg PO DAILY [facility] Last Admin: 02/12/19 08:49 Dose: 25 mg Propafenone HCl (Rythmol) 300 mg PO Q8HR [facility] Last Admin: 02/12/19 05:44 Dose: 300 mg Warfarin Sodium (Coumadin) 5 mg PO MoTh@1700 [facility] Last Admin: 02/11/19 21:02 Dose: 5 mg Warfarin Sodium (Coumadin) 2.5 mg PO SuTuWeFrSa@1700 [facility] ALLERGIES No Known Drug Allergies Adverse Reaction (Verified 02/10/19 18:06) Discontinued Medications NONE NEW PRESCRIPTIONS: PREDNISONE 20 MG DAILY FOR 5 DAYS AZITHROMYCIN 500 MG DAILY FOR 1 DAY SMOKING: NOT APPLICABLE (DOES NOT SMOKE) DISEASE SPECIFIC EDUCATION: USE OF STEROIDS AND RISK OF GI UPSET MEDICATIONS APPOINTMENT LAB REVIEW: 02/12/19 05:11 02/12/19 05:11 02/12/19 05:11: Sodium 135.3, Potassium 3.97, Chloride 102.4, Carbon Dioxide 25.7, Anion Gap 11.17, BUN 24.0 H, Creatinine 0.99, Estimated GFR (MDRD) 72.00, BUN/Creatinine Ratio 24.24, Glucose 164.8 H, Calcium 9.00, Total Bilirubin 0.63 , AST 38.0, ALT 21.5, Alkaline Phosphatase 66.9, Total Protein 6.08 L, Albumin 3.52, Globulin 2.56, Albumin/Globulin Ratio 1.37 02/12/19 05:11: PT 18.4 H, INR 1.87 02/12/19 05:11: WBC 6.47, RBC 4.47 L, Hgb 13.3 L, Hct 39.9 L, MCV 89.3, MCH 29.8 , MCHC 33.3, RDW Coeff of Angeline 13.3, Plt Count 134 L, Immature Gran % (Auto) 0.3 , Neut % (Auto) 70.9, Lymph % (Auto) 25.2, [place] % (Auto) 3.6, Eos % (Auto) 0.0, Baso % (Auto) 0.0, Immature Gran # (Auto) 0.0, Neut # (Auto) 4.6, Lymph # (Auto ) 1.6, [place] # (Auto) 0.2 L, Eos # (Auto) 0.0, Baso # (Auto) 0.0 02/11/19 11:10: Total Creatine Kinase 328.5 H, CK-MB (CK-2) 3.080 H, CK-MB (CK-2 ) % 0.9300, Troponin I < 0.012 PLAN: DISCHARGE HOME DIET: REGULAR TOLERATED ACTIVITY: RESUME ACTIVITY AN APPOINTMENT IS SCHEDULED WITH DR. LIND, PCP ON FEBRUARY 15, 2019 AT 1 PM AT [facility] ON [address] MR. BROWN IS ALERT AND ORIENTED X 3. HE IS INDEPENDENT WITH ACTIVITIES OF DAILY LIVING. MR. BROWN RESIDES AT HOME WITH HIS . HE IS AGREEABLE TO DISCHARGE PLANS FOR TODAY. MR. BROWN IS AMBULATORY IN THE HALLWAY WITHOUT STAFF ASSISTANCE OR USE OF AN ASSISTIVE DEVICE. HE IS TOLERATING A REGULAR DIET WITH INTAKES OF 100%. HE WILL BE DISCHARGED HOME TODAY WITH A PRESCRIPTION FOR PREDNISONE AND AZITHROMYCIN. SKIN IS IN GOOD CONDITION AND FREE OF DECUBITUS ULCERS. MELODY WILKS MD
[2019-02-12] MEDS ORDERED: COUMADIN PO SCH (17:00)
== END 2019-02-12 11:14 | disposition home or self-care (01) | DRG 203 ==
LOC: ED 18:00 → MEDSURG B 21:27
PROVIDERS: ADMIT Internal Medicine; ATTEND Internal Medicine
DX: J20.9 Acute bronchitis, unspecified (principal); J44.9 Chronic obstructive pulmonary disease, unspecified; I50.9 Heart failure, unspecified; I48.91 Unspecified atrial fibrillation; I10 Essential (primary) hypertension; E78.5 Hyperlipidemia, unspecified; K21.9 Gastro-esophageal reflux disease without esophagitis; R06.00 Dyspnea, unspecified; R06.2 Wheezing; R42 Dizziness and giddiness; R53.1 Weakness; R06.01 Orthopnea; Z79.01 Long term (current) use of anticoagulants; Z68.32 Body mass index [BMI] 32.0-32.9, adult
CPT/HCPCS: 36415; 80053; 81001; 82550; 82553; 82803; 83605; 83880; 84145; 84484; 85025; 85379; 85610; 87040; 87070; 93005; 93010; 94640; 99285

== ENCOUNTER 2019-02-15 15:40 | Outpatient (CLI) | END 2019-02-15 15:41 | disposition home or self-care (01) | LOC: RHC-LAB 15:40 | PROVIDERS: ATTEND General Practice | DX: R74.0 Nonspecific elevation of levels of transaminase and lactic acid dehydrogenase [LDH] (principal); R05 Cough; Z09 Encounter for follow-up examination after completed treatment for conditions other than malignant neoplasm | CPT/HCPCS: 36415; 80076; 86710 ==

== ENCOUNTER 2019-02-22 14:17 | Outpatient (CLI) ==
--- NOTE | 2019-02-22 16:36 | CT ---
EXAM: CT chest without contrast HISTORY: Shortness of breath COMPARISON: 02/10/2019 TECHNIQUE: CT chest performed without intravenous contrast. Coronal and sagittal reformatted images obtained FINDINGS: Thoracic inlet unremarkable. Heart normal in size. Coronary calcifications. No pericard ial effusion. Aorta normal in caliber. Moderate atherosclerosis. Small hiatal hernia. Evaluation for lymphadenopathy limited without contrast. No lymphadenopathy identified. Calcified right hilar lymph nodes, consistent with old granulomatous disease. Mild gynecomastia on the right. Visualized portion upper abdomen demonstrates no acute abnormality. Granulomas calcification in the spleen. 2 mm nonobstructing right renal calculus. No acute abnormalities of the bones. Degenerative change in the spine. Bridging osteophytes throughout the thoracic spine. Central airway patent. Bilateral l ower airway thickening. Multifocal bilateral ground-glass opacities and nodular areas of consolidati on, greatest in the right lower lobe. Ground-glass opacities have progressed from prior examination with consolidations appearing new from prior examination. IMPRESSION: 1. Bilateral lower airway thickening. Multifocal bilateral ground-glass opacities and nodular areas of consolidation. Findings likely represent small airways infection/inflammation with associated pn eumonia. Recommend CT chest follow-up in 3 months, given nodularity. 2. Coronary calcifications. Atherosclerosis. 3. Findings of old granulomatous disease.
== END 2019-02-22 14:18 | disposition home or self-care (01) ==
LOC: RAD 14:17
PROVIDERS: ATTEND General Practice
DX: R06.02 Shortness of breath (principal); R05 Cough
CPT/HCPCS: 36415; 83880; 84145; 85025; 87070

== ENCOUNTER 2019-02-22 14:35 | Outpatient (CLI) | END 2019-02-22 14:36 | disposition home or self-care (01) | LOC: RHC-LAB 14:35 | PROVIDERS: ATTEND General Practice | DX: R06.02 Shortness of breath (principal); R05 Cough | CPT/HCPCS: 36415; 83880; 84145; 85025; 87070 ==

== ENCOUNTER 2019-05-15 08:08 | Outpatient (CLI) | END 2019-05-15 08:09 | disposition home or self-care (01) | LOC: RHC-LAB 08:08 | PROVIDERS: ATTEND General Practice | DX: R06.02 Shortness of breath (principal); I49.9 Cardiac arrhythmia, unspecified; I10 Essential (primary) hypertension; J44.9 Chronic obstructive pulmonary disease, unspecified; E78.5 Hyperlipidemia, unspecified; I48.91 Unspecified atrial fibrillation; M25.50 Pain in unspecified joint; M19.90 Unspecified osteoarthritis, unspecified site; Z79.899 Other long term (current) drug therapy | CPT/HCPCS: 36415; 80053; 80061; 81001; 83880; 85025 ==

== ENCOUNTER 2019-05-17 14:45 | Outpatient (CLI) ==
--- NOTE | 2019-05-18 09:34 | DI ---
EXAM: PA and lateral views of the chest dated 05/17/2019 CLINICAL HISTORY: Shortness of breath FINDINGS: Comparison is made to an exam dated 02/10/2019. The heart size and mediastinal contours are normal. The aorta is atherosclerotic. Old granulomatous changes are seen. No masses, infiltrates or effusions are seen. No pneumothorax is evident. Bony structures are intact. IMPRESSION: No acute cardiopulmonary process Old granulomatous changes Atherosclerotic aorta
== END 2019-05-17 14:46 | disposition home or self-care (01) ==
LOC: RAD 14:45
PROVIDERS: ATTEND General Practice
DX: J44.9 Chronic obstructive pulmonary disease, unspecified (principal)

== ENCOUNTER 2020-01-05 15:44 | Inpatient (IN) ==
[2020-01-05] MEDS ORDERED: SOLU-MEDROL 125 MG IVP STA (16:16)
[2020-01-05] MEDS ORDERED: DUONEB NEB STA (16:16)
--- NOTE | 2020-01-05 16:28 | ED.PDOC ---
General ED Provider: Dr. GEORGES SYLVESTER Chief Complaint: Respiratory Complaint Stated Complaint: Feels SOB, developed at home today after experiencing a hard chill. States that's how my bronchitis always flares up. States had a cough at home beginning mid week productive of clear sputum but note slight blood tinged a one point. This afternoon when developed hard chill decided to come to ER for Evaluation, accompanied by . Time Seen by Physician: 16:00 Mode of Arrival: Walk-In Information Source: Patient Exam Limitations: No limitations Primary Care Provider: CALOS RESENDEZMD Niels Nursing and Triage Documentation Reviewed and Agree: Yes Does patient meet sepsis criteria?: Yes If yes, has appropriate treatment been initiated?: Yes System Inflammatory Response Syndrome: Temp 101F or Greater, Pulse >90 BPM and Resp >20/Minute Sepsis Protocol: For patient's 13 years and over: Temp is 96.8 and below OR 101 and greater Pulse >90 BPM Resp >20/minute Acutely Altered Mental Status Are patient's symptoms suggestive of a new infection, such as: -Pneumonia -Skin, Soft Tissue -Endocarditis -UTI -Bone, Joint Infection -Implantable Device -Acute Abdominal Infection -Wound Infection -Meningitis -Blood Stream Catheter Infection -Unknown Respiratory Complaint Exam Respiratory Complaint/Exam Onset/Duration: Today Symptoms Are: Still present Timing: Intermittent Initial Severity: Mild Current Severity: Moderate Location: Chest Character: Reports Productive cough (Blood tinged secretions) Aggravating: Reports Deep breaths and Recumbent position Alleviating: Reports None Associated Signs and Symptoms: Reports Dyspnea, Fever, Chest pain, Pleuritic chest pain, Wheezing and Hemoptysis Related History: Reports Similar episode History of Healthcare-Acquired Pneumonia: No Pulmonary Embolism Risk Factors: None Pseudomonas Risk Factors: Reports None Tuberculosis Risk Factors: Reports None Status Asthmaticus Risk Factors: Reports None Recent Stress Test: No Recent Echo/LV Function: No Current Antibiotic Use: No Current Asthma Medication Use: No Respiratory Distress: Mild Inadequate Respiratory Effort: Yes Dysphagia Present: No Stridor Present: No JVD Present: No Accessory Muscle Use: No Retractions: Not Present Diminished Breath Sounds: Yes Prolonged Respiration: Inspiratory phase Sinus Tenderness: None Grunting Respirations: No Kussmaul Respirations: No Differential Diagnoses: COPD Exacerbation, Pneumonia, GERD and Influenza Review of Systems Review Of Systems Constitutional: Reports Chills Eyes: Reports No symptoms Ears, Nose, Mouth, Throat: Reports No symptoms Respiratory: Reports Cough, Short of air and Wheezing Cardiac: Reports No symptoms GI: Reports No symptoms : Reports No symptoms Musculoskeletal: Reports No symptoms Skin: Reports No symptoms Neurological: Reports No symptoms Endocrine: Reports No symptoms Hematologic/Lymphatic: Reports No symptoms All Other Systems: Reviewed and Negative [facility] Social History History of recent travel: No Physical Exam Physical Exam Appearance: Reports Ill-appearing, No pain distress (appears uncomfortable), Well-nourished and Obese Ill-appearing: Mild Pain Distress: Mild Eyes: Reports ERNIE, EOMI and Conjunctiva clear ENT: Reports Ears normal, Nose normal and Oropharynx normal Neck: Supple Respiratory: Reports Airway patent, Breath sounds clear, Breath sounds dim inished, Respirations nonlabored and Wheezes Cardiovascular: Reports RRR, Pulses normal, No rub and No murmur GI/: Reports Soft, Nontender, No masses, Bowel sounds normal and No Organomegaly Musculoskeletal: Reports Normal strength, ROM intact, No edema and No calf tenderness Skin: Reports Warm, Dry and Normal color Neurological: Reports Sensation intact, Motor intact, Reflexes intact, Cranial nerves intact, Alert and Oriented Psychiatric: Reports Affect appropriate, Mood appropriate and Anxious Interpretation Radiology Interpretation Exam Interpreted: Portable CXR (normal fingings) and CT Scan Xray Comments: Chest-Bilateral lower lobe pneumonia. EKG Interpretation Time of EKG #1: 17:00 Rate: Normal Rhythm: Sinus Ectopy: None [place]: NL ST Segment: Normal Interpretation: NSR Physician Notification Case Discussed Physician Notified: dr avilez- Discussed Case; req admission Time of Notification: 19:30 Admit/Transition Orders Entered by ED Provider: Yes Reviewed With: Dr Avilez Admit To: Inpatient Comments: Discussed Case and All testing results> Chest X Ray neg revealed The heart is normal size with Lungs clear, pulmonary vasculature appearing normal and the costophrenic angles appearing sharp. Impression by Radiologist :No active cardiopulmonary disease. Will obtain Chest CT scan prior to transfer to floor to assure no pulmonary source of infection. Have initiated treatment including Nebs, IV antibiotics Etc Critical Care Note Critical Care Note Total Time (mins): 60 Course Course Hematology/Chemistry: 01/07/20 05:17 01/07/20 05:17 Orders, Labs, Meds: Lab Review 01/05/20 01/05/20 01/05/20 16:17 16:25 16:40 WBC 5.87 RBC 4.52 L Hgb 13.4 L Hct 40.2 L MCV 88.9 MCH 29.6 MCHC 33.3 RDW Coeff of Angeline 13.2 Plt Count 140 Immature Gran % (Auto) 0.3 Neut % (Auto) 64.2 Lymph % (Auto) 24.9 [place] % (Auto) 8.7 Eos % (Auto) 1.4 Baso % (Auto) 0.5 Immature Gran # (Auto) 0.0 Neut # (Auto) 3.8 Lymph # (Auto) 1.5 [place] # (Auto) 0.5 Eos # (Auto) 0.1 Baso # (Auto) 0.0 PT INR APTT Puncture Site Rb O2 Saturation 97.0 ABG pH 7.477 H ABG pCO2 32.5 L ABG pO2 86.0 ABG HCO3 24.0 ABG Total CO2 25 ABG Base Excess 0 FiO2 % 21.0 Sodium Potassium Chloride Carbon Dioxide Anion Gap BUN Creatinine Estimated GFR (MDRD) BUN/Creatinine Ratio Glucose Lactic Acid Uric Acid Calcium Total Bilirubin AST ALT Alkaline Phosphatase NT-Pro-B Natriuret Pep Total Protein Albumin Globulin Albumin/Globulin Ratio Procalcitonin Urine Color Urine Clarity Urine pH Ur Specific [place] Urine Protein Urine Glucose (UA) Urine Ketones Urine Blood Urine Nitrite Urine Bilirubin Urine Urobilinogen Ur Leukocyte Esterase Urine Microscopic RBC Ur Squamous Epith Cells Influ A Molecular Assay Negative by naat Influ B Molecular Assay Negative by naat RSV Antigen Negative by naat 01/05/20 01/05/20 01/05/20 16:40 16:40 16:40 WBC RBC Hgb Hct MCV MCH MCHC RDW Coeff of Angeline Plt Count Immature Gran % (Auto) Neut % (Auto) Lymph % (Auto) [place] % (Auto) Eos % (Auto) Baso % (Auto) Immature Gran # (Auto) Neut # (Auto) Lymph # (Auto) [place] # (Auto) Eos # (Auto) Baso # (Auto) PT 18.9 H INR 2.01 APTT 31.2 Puncture Site O2 Saturation ABG pH ABG pCO2 ABG pO2 ABG HCO3 ABG Total CO2 ABG Base Excess FiO2 % Sodium 137.0 Potassium 4.22 Chloride 105.2 Carbon Dioxide 24.9 Anion Gap 11.12 BUN 15.9 Creatinine 0.93 Estimated GFR (MDRD) 77.00 BUN/Creatinine Ratio 17.09 Glucose 118.5 H Lactic Acid Uric Acid 5.77 Calcium 9.34 Total Bilirubin 0.97 AST 36.8 ALT 22.7 Alkaline Phosphatase 84.7 NT-Pro-B Natriuret Pep Total Protein 6.26 L Albumin 3.88 Globulin 2.38 Albumin/Globulin Ratio 1.63 Procalcitonin < 0.05 Urine Color Urine Clarity Urine pH Ur Specific [place] Urine Protein Urine Glucose (UA) Urine Ketones Urine Blood Urine Nitrite Urine Bilirubin Urine Urobilinogen Ur Leukocyte Esterase Urine Microscopic RBC Ur Squamous Epith Cells Influ A Molecular Assay Influ B Molecular Assay RSV Antigen 01/05/20 01/05/20 01/05/20 16:40 16:40 17:45 WBC RBC Hgb Hct MCV MCH MCHC RDW Coeff of Angeline Plt Count Immature Gran % (Auto) Neut % (Auto) Lymph % (Auto) [place] % (Auto) Eos % (Auto) Baso % (Auto) Immature Gran # (Auto) Neut # (Auto) Lymph # (Auto) [place] # (Auto) Eos # (Auto) Baso # (Auto) PT INR APTT Puncture Site O2 Saturation ABG pH ABG pCO2 ABG pO2 ABG HCO3 ABG Total CO2 ABG Base Excess FiO2 % Sodium Potassium Chloride Carbon Dioxide Anion Gap BUN Creatinine Estimated GFR (MDRD) BUN/Creatinine Ratio Glucose Lactic Acid 1.45 Uric Acid Calcium Total Bilirubin AST ALT Alkaline Phosphatase NT-Pro-B Natriuret Pep 674.000 H Total Protein Albumin Globulin Albumin/Globulin Ratio Procalcitonin Urine Color Yellow Urine Clarity Clear Urine pH 5.5 Ur Specific [place] 1.025 Urine Protein Negative Urine Glucose (UA) Negative Urine Ketones Negative Urine Blood Trace-intact Urine Nitrite Negative Urine Bilirubin Negative Urine Urobilinogen 1.0 Ur Leukocyte Esterase Negative Urine Microscopic RBC 0-2 Ur Squamous Epith Cells 0-2 Influ A Molecular Assay Influ B Molecular Assay RSV Antigen Orders Category Date Time Status ABG DRAW REQUEST Stat CARDIO 01/05/20 16:17 Completed EKG-(ED ONLY) Stat CARDIO 01/05/20 16:17 Completed NEBULIZER TREATMENT Stat CARDIO 01/05/20 16:19 Completed NEBULIZER TREATMENT Stat CARDIO 01/05/20 18:18 Completed INTAKE & OUTPUT Q8HR CARE 01/05/20 19:43 Active VITAL SIGNS Q4HR CARE 01/05/20 19:43 Active REGULAR DIET DIETARY 01/05/20 Breakfast Ordered ABG Stat LAB 01/05/20 16:17 Completed BLOOD CULTURE (ED ONLY) Stat LAB 01/05/20 16:18 Stop Req BLOOD CULTURE Stat LAB 01/05/20 17:45 Results CBC W/ AUTO DIFF DAILY@0600 LAB 01/06/20 04:51 Completed CBC W/ AUTO DIFF DAILY@0600 LAB 01/07/20 05:17 Completed CBC W/ AUTO DIFF Stat LAB 01/05/20 16:40 Completed CMP [COMPREHENSIVE METABOLIC PANEL] Stat LAB 01/05/20 16:40 Completed COMPREHENSIVE METABOLIC PANEL DAILY@0600 LAB 01/06/20 04:51 Completed COMPREHENSIVE METABOLIC PANEL DAILY@0600 LAB 01/07/20 05:17 Completed FLU A & B MOLECULAR [FLU A/B MOLECULAR] Stat LAB 01/05/20 16:25 Completed LACTIC ACID Stat LAB 01/05/20 16:40 Completed PARTIAL THROMBOPLASTIN TIME Stat LAB 01/05/20 16:40 Completed PROCALCITONIN Stat LAB 01/05/20 16:40 Completed PT WITH INR DAILY@0600 LAB 01/06/20 04:51 Completed PT WITH INR DAILY@0600 LAB 01/07/20 05:17 Completed PT WITH INR Stat LAB 01/05/20 16:40 Completed RAPID STREP SCREEN [MOLECULAR GROUP A STREP] Stat LAB 01/05/20 16:25 Completed RSV Stat LAB 01/05/20 16:25 Completed URIC ACID Stat LAB 01/05/20 16:40 Completed URINALYSIS C & S IF INDICATED Stat LAB 01/05/20 17:45 Completed Acetaminophen [Tylenol] MEDS 01/05/20 18:22 Discontinued 650 mg PO ONCE STA Ceftriaxone/D5w 2 gm Premix [Rocephin 2 gm/50 ml D5w] MEDS 01/05/20 19:33 Discontinued 2 gm in 50 ml IV ONCE Doxycycline Hyclate Inj [Doxy-100] 100 mg MEDS 01/05/20 21:00 Active 0.9 % Sodium Chloride [Sodium Chloride] 100 ml IV Q12HR Ibuprofen [Motrin] MEDS 01/05/20 18:39 Discontinued 600 mg PO ONCE STA Ipratropium/Albuterol Neb [Duoneb] MEDS 01/05/20 16:16 Discontinued 3 ml NEB ONCE STA Levalbuterol HCl [Xopenex 1.25 mg] MEDS 01/05/20 18:18 Discontinued 1.25 mg NEB ONCE STA Methylprednisolone Sod Succ/Pf [Solu-Medrol 125 mg] MEDS 01/05/20 16:16 Discontinued 125 mg IVP ONCE STA Oseltamivir Phosphate [Tamiflu] MEDS 01/05/20 20:00 Discontinued 75 mg PO BID Sodium Chloride 0.9% [Sodium Chloride] 1,000 ml MEDS 01/05/20 17:02 Discontinued IV BOLUS RESUSCITATION STATUS Routine OTHERS 01/05/20 19:41 Ordered CHEST, 1V AP ONLY Stat RADS 01/05/20 16:17 Completed Medications Generic Name Dose Route Start Last Admin Trade Name Freq PRN Reason Stop Dose Admin Albuterol/Ipratropium 3 ml 01/06/20 08:24 Duoneb NEB RTQ6H PRN Wheezing Atorvastatin Calcium 20 mg 01/06/20 17:00 01/06/20 16:33 Lipitor PO 20 mg DAILY@1700 JOVI Administration Flecainide Acetate 50 mg 01/06/20 09:00 01/07/20 09:10 Tambocor PO 50 mg BID JOVI Administration Doxycycline Hyclate 100 mg/ 100 mls @ 50 mls/hr 01/05/20 21:00 01/07/20 09:10 Sodium Chloride IV 01/08/20 20:59 50 mls/hr Q12HR JOVI Administration CEFEPIME 2 GM/D5W 2 gm in 50 mls @ 75 mls/hr 01/05/20 23:00 01/07/20 04:58 Maxipime 2 Gm/50 Ml D5w IV 01/08/20 22:59 75 mls/hr Q8HR JOVI Administration Losartan Potassium 50 mg 01/07/20 09:00 01/07/20 09:20 Cozaar PO Not Given BID JOVI Warfarin Sodium 5 mg 01/06/20 17:00 01/06/20 16:36 Coumadin PO 5 mg MoThSa@1700 JOVI Administration Warfarin Sodium 2.5 mg 01/05/20 22:00 01/05/20 23:30 Coumadin PO 2.5 mg [id number]@1700 JOVI Administration Discontinued Medications Generic Name Dose Route Start Last Admin Trade Name Freq PRN Reason Stop Dose Admin Acetaminophen 650 mg 01/05/20 18:22 01/05/20 18:43 Tylenol PO 01/05/20 18:23 650 mg ONCE STA Administration Albuterol/Ipratropium 3 ml 01/05/20 16:16 01/05/20 16:45 Duoneb NEB 01/05/20 16:17 3 ml ONCE STA Administration Dexamethasone Sodium Phosphate 4 mg 01/06/20 08:19 01/06/20 09:28 Decadron 4 Mg/Ml Sdv IM 01/06/20 08:20 4 mg ONCE STA Administration Dexamethasone Sodium Phosphate 4 mg 01/07/20 09:00 01/07/20 09:16 Decadron 4 Mg/Ml Sdv IM 01/07/20 09:30 4 mg DAILY JOVI Administration Sodium Chloride 1,000 mls @ 1,000 mls/hr 01/05/20 17:02 01/05/20 17:23 Sodium Chloride IV 01/05/20 18:01 1,000 mls/hr BOLUS STA Administration CEFTRIAXONE/D5W 2 GM PREMIX 2 gm in 50 mls @ 75 mls/hr 01/05/20 19:33 01/05/20 20:08 Rocephin 2 Gm/50 Ml D5w IV 01/05/20 20:12 75 mls/hr ONCE STA Administration Sodium Chloride 1,000 mls @ 125 mls/hr 01/05/20 19:48 01/05/20 20:04 Sodium Chloride IV 01/06/20 03:47 125 mls/hr .Q8H STA Administration Multivitamins/Minerals 10 ml/ 1,010 mls @ 83.001 mls/hr 01/05/20 21:30 01/06/20 16:30 Potassium Chloride/Dextrose/ IV 83.001 mls/hr Sod Cl .[id number] JOVI Administration Ibuprofen 600 mg 01/05/20 18:39 01/05/20 18:43 Motrin PO 01/05/20 18:40 600 mg ONCE STA Administration Levalbuterol HCl 1.25 mg 01/05/20 18:18 01/05/20 18:33 Xopenex 1.25 Mg NEB 01/05/20 18:19 1.25 mg ONCE STA Administration Losartan Potassium 25 mg 01/06/20 09:00 01/06/20 08:03 Cozaar PO 25 mg DAILY JOVI Administration Losartan Potassium 50 mg 01/07/20 09:00 01/07/20 09:12 Cozaar PO 50 mg BID JOVI Administration Methylprednisolone Sodium Succinate 125 mg 01/05/20 16:16 01/05/20 16:55 Solu-Medrol 125 Mg IVP 01/05/20 16:17 125 mg ONCE STA Administration Oseltamivir Phosphate 75 mg 01/05/20 20:00 01/05/20 21:28 Tamiflu PO 01/09/20 21:01 Not Given BID JOVI Warfarin Sodium 2.5 mg 01/05/20 22:00 Coumadin PO SUTUWEFR JOVI Warfarin Sodium 5 mg 01/06/20 17:00 01/06/20 16:34 Coumadin PO 01/06/20 17:01 5 mg ONCE ONE Administration Vital Signs: Temp Pulse Resp BP Pulse Ox 01/05/20 19:46 102.9 F H 01/05/20 19:23 103.7 F H 01/05/20 18:41 104.9 F H 01/05/20 15:45 101.0 F H 96 H 24 216/75 H 93 L Discharge Plan Discharge Patient Disposition: ADMITTED INPATIENT Discharge Problem: Acute febrile illness, Pneumonia of both lower lobes, History of CHF (congestive heart failure), COPD (chronic obstructive pulmonary disease), Hyper tension, History of Coumadin therapy ED Provider: GEORGES SYLVESTER Interventions: Discharge Last Done: 01/05/20 20:32 Discharge Date/Time: 01/05/20 20:33
[2020-01-05 16:45] LABS: HEMATOCRIT 40.2 % (42.0-52.0)
[2020-01-05] MEDS ORDERED: SODIUM CHLORIDE 1,000 ML IV STA ×2 (17:02→19:48)
--- NOTE | 2020-01-05 17:13 | DI ---
EXAM: One-view chest HISTORY: Dyspnea TECHNIQUE: Single frontal view the chest was obtained. Comparison 05/17/2019. FINDINGS: The heart is normal size. Lungs are clear. The pulmonary vasculature appears normal. Th e costophrenic angles are sharp. IMPRESSION: No active cardiopulmonary disease.
[2020-01-05] MEDS ORDERED: XOPENEX 1.25 MG NEB STA (18:18)
[2020-01-05] MEDS ORDERED: TYLENOL PO STA (18:22)
[2020-01-05] MEDS ORDERED: MOTRIN PO STA (18:39)
[2020-01-05] MEDS ORDERED: ROCEPHIN 2 GM/50 ML D5W 2 GM/50 ML BAG IV STA (19:33)
[2020-01-05] MEDS ORDERED: MOTRIN PO PRN (19:41)
[2020-01-05] MEDS ORDERED: TYLENOL PO PRN (19:41)
[2020-01-05] MEDS ORDERED: SODIUM CHLORIDE 0.9%-KCL 20 MEQ 1,000 ML IV SCH (20:00)
--- NOTE | 2020-01-05 20:17 | CT ---
EXAM: CT scan of the chest without contrast HISTORY: Febrile illness, cough TECHNIQUE: Helical imaging of the chest was performed without contrast. 5 mm thin axial images and coronal and sagittal reconstructions are provided for interpretation. Comparison 02/[address] scan of the chest. FINDINGS: There is infiltrate seen within the right lower lobe and left lower lobe of the lung. Randy g volumes are normal. The heart is normal size. No mediastinal masses are seen. There is atheroscl erotic calcification of the thoracic aorta. No lytic or blastic lesions are seen within the osseous structures. IMPRESSION: Bilateral lower lobe pneumonia.
[2020-01-05 20:55] VITALS: BMI 32.5
[2020-01-05] MEDS: DOXY-100 100 MG in SODIUM CHLORIDE 100 ML IV SCH (21:08)
[2020-01-05] MEDS: TAMIFLU PO SCH ×2 (21:08→21:28)
[2020-01-05] MEDS ORDERED: COUMADIN PO SCH (22:00)
[2020-01-05] MEDS ORDERED: INFUVITE ADULT IV ONE ×2 (23:25→23:37)
[2020-01-05] MEDS: COUMADIN PO SCH (23:30)
[2020-01-05] MEDS: MAXIPIME 2 GM/50 ML D5W 2 GM/50 ML BAG IV SCH (23:31)
[2020-01-05] MEDS: INFUVITE ADULT 10 ML in D5%-1/2NS-KCL 20 MEQ/L IV SOL 1,000 ML IV SCH (23:34)
[2020-01-06 05:18] LABS: HEMATOCRIT 35.2 % (42.0-52.0)
[2020-01-06] MEDS: MAXIPIME 2 GM/50 ML D5W 2 GM/50 ML BAG IV SCH ×3 (05:31→20:48)
[2020-01-06] MEDS: DOXY-100 100 MG in SODIUM CHLORIDE 100 ML IV SCH ×2 (08:01→22:06)
[2020-01-06] MEDS: TAMBOCOR PO SCH ×2 (08:04→20:48)
[2020-01-06] MEDS ORDERED: DECADRON 4 MG/ML SDV IM STA (08:19)
[2020-01-06] MEDS ORDERED: DUONEB NEB PRN (08:24)
--- NOTE | 2020-01-06 08:29 | PCM.CONS ---
CONSULTING PROVIDER: Dr. MELODY WILKS ATTENDING PROVIDER: [facility] DATE OF SERVICE: 01/06/20 SUBJECTIVE: This 84 year old /WHITE M was hospitalized 01/05/20. The patient was seen and examined in consultation for evaluation of cardiovascular system. The patient was hospitalized on 01/05/20 with acute febrile illness, cough and congestion, duration 24 hours, sudden onset, sounds like flu syndrome. No nausea or vomiting. REVIEW OF SYSTEMS: CONSTITUTIONAL: Positive for fever and chills. No night sweats. No fatigue, malaise, lethargy. HEENT: Eyes: No visual changes. No eye pain. No eye discharge. ENT: No runny nose. No epistaxis. No sinus pain. No odynophagia. No congestion. RESPIRATORY: Positive for cough and congestion. No hemoptysis. No shortness of breath. CARDIOVASCULAR: No angina symptoms. No CHF symptoms. No atypical chest pain for CAD. No palpitations. No orthopnea. GASTROINTESTINAL: No abdominal pain. No nausea or vomiting. No diarrhea or constipation. No hematemesis. No hematochezia. GENITOURINARY: No urgency. No frequency. No dysuria. No hematuria. No obstructive symptoms. No discharge. No pain. No significant abnormal bleeding. MUSCULOSKELETAL: No musculoskeletal pain; no joint swelling. NEUROLOGICAL: Awake, alert, oriented to time, place and person. No headache. No neck pain. No syncope. No seizures. No dizziness. PSYCHIATRIC: Not anxious. No depression. No suicidal thoughts. No homicidal thoughts. SKIN: No rash. No lesions. No wounds. ENDOCRINE: No unexplained weight loss. No weight gain. HEMATOLOGIC/LYMPHATIC: No anemia. No purpura. No petechiae. No prolonged or excessive bleeding. No palpable lymph nodes. PHYSICAL EXAMINATION: GENERAL: The patient is awake, alert and oriented, lying/sitting in bed in no distress. VITAL SIGNS: Temperature 97.6 F, Pulse 73, Respiratory Rate 16, BP 125/67, Pulse Ox 97% HEENT: Head normocephalic, atraumatic. Eyes: Extraocular muscles are intact. Pupils are equal, round and reactive to light and accommodation. Ears: No lesions. Nose appeared normal. Throat: No exudate or erythema. NECK: Supple. No JVD, no carotid bruit. No lymphadenopathy or thyromegaly. LUNGS: Clear to auscultation. Percussion note normal. Chest symmetrical. HEART: S1, S2, no S3. No murmurs. No cyanosis or clubbing. No ascites. Pulses: Dorsalis pedis and posterior tibial pulses +1 both sides. ABDOMEN: Soft. Non-tender. Bowel sounds active. No CVA tenderness. No mass felt. EXTREMITIES: No edema. Full range of motion of all extremities, equal. NEUROLOGIC: No focal deficit. Cranial nerves II through XII are grossly intact. No headache, no double vision or headache. SKIN: Warm and dry. Intact. Turgor-normal. LYMPHATIC: No palpable lymph nodes/no lymphedema. MUSCULOSKELETAL: Normal joints with no swelling. Muscle tone is normal. LAB REVIEW: 01/06/20 04:51 01/06/20 04:51 01/06/20 04:51: Sodium 136.4, Potassium 4.41, Chloride 103.9, Carbon Dioxide 25.2, Anion Gap 11.71, BUN 20.7 H, Creatinine 0.97, Estimated GFR (MDRD) 73.00, BUN/Creatinine Ratio 21.34, Glucose 227.5 H D, Calcium 8.92, Total Bilirubin 1.02, AST 38.0, ALT 21.8, Alkaline Phosphatase 57.3 D, Total Protein 5.46 L, Albumin 3.34 L, Globulin 2.12, Albumin/Globulin Ratio 1.57 01/06/20 04:51: PT 15.7 H, INR 1.65 01/06/20 04:51: WBC 8.42, RBC 3.91 L, Hgb 11.4 L, Hct 35.2 L, MCV 90.0, MCH 2 9.2, MCHC 32.4, RDW Coeff of Angeline 13.2, Plt Count 115 L, Neutrophils % (Manual) 72.0, Band Neutrophils % 2.0, Lymphocytes % (Manual) 15.0, Monocytes % (Manual) 7.0, Metamyelocytes % 2.0, Myelocytes % 2.0 H, Anisocytosis Not present 01/05/20 17:45: Urine Color Yellow, Urine Clarity Clear, Urine pH 5.5, Ur Specific [place] 1.025, Urine Protein Negative, Urine Glucose (UA) Negative, Urine Ketones Negative, Urine Blood Trace-intact, Urine Nitrite Negative, Urine Bilirubin Negative, Urine Urobilinogen 1.0, Ur Leukocyte Esterase Negative, Urine Microscopic RBC 0-2, Ur Squamous Epith Cells 0-2 01/05/20 16:40: NT-Pro-B Natriuret Pep 674.000 H 01/05/20 16:40: Lactic Acid 1.45 01/05/20 16:40: Procalcitonin < 0.05 01/05/20 16:40: Sodium 137.0, Potassium 4.22, Chloride 105.2, Carbon Dioxide 24.9, Anion Gap 11.12, BUN 15.9, Creatinine 0.93, Estimated GFR (MDRD) 77.00, BUN/Creatinine Ratio 17.09, Glucose 118.5 H, Uric Acid 5.77, Calcium 9.34, Total Bilirubin 0.97, AST 36.8, ALT 22.7, Alkaline Phosphatase 84.7, Total Protein 6.26 L, Albumin 3.88, Globulin 2.38, Albumin/Globulin Ratio 1.63 01/05/20 16:40: PT 18.9 H, INR 2.01, APTT 31.2 01/05/20 16:40: WBC 5.87, RBC 4.52 L, Hgb 13.4 L, Hct 40.2 L, MCV 88.9, MCH 29.6, MCHC 33.3, RDW Coeff of [place] 13.2, Plt Count 140, Immature Gran % (Auto) 0.3, Neut % (Auto) 64.2, Lymph % (Auto) 24.9, [place] % (Auto) 8.7, Eos % (Auto) 1.4, Baso % (Auto) 0.5, Immature Gran # (Auto) 0.0, Neut # (Auto) 3.8, Lymph # (Auto) 1.5, [place] # (Auto) 0.5, Eos # (Auto) 0.1, Baso # (Auto) 0.0 01/05/20 16:25: Influ A Molecular Assay Negative by naat, Influ B Molecular Assay Negative by naat, RSV Antigen Negative by naat 01/05/20 16:17: Puncture Site Rb, O2 Saturation 97.0, ABG pH 7.477 H, ABG pCO2 32.5 L, ABG pO2 86.0, ABG HCO3 24.0, ABG Total CO2 25, ABG Base Excess 0, FiO2 % 21.0 ASSESSMENT: 1. Bilateral pneumonia with acute febrile illness. 2. Stable cardiovascular status. RECOMMENDATIONS/PLAN: 1. 1 cc Decadron now and tomorrow morning. 2. Continue telemetry. 3. Duonebs p.r.n. 4. One extra dose of Coumadin. Plan and coordination of the patient's care discussed in the presence of Machine Rigger and Nurse. CONDITION: Stable SCRIBED BY: Le JACK scribed while in presence of service performed by Dr. MELODY WILKS on 01/06/20 ([id number])
[2020-01-06] MEDS ORDERED: COZAAR PO SCH (09:00)
[2020-01-06] MEDS ORDERED: SYMBICORT 160-4.5 MCG INHALER IH SCH (09:00)
[2020-01-06] MEDS ORDERED: LOVENOX SUBCUT SCH (09:00)
--- NOTE | 2020-01-06 11:43 | HP ---
DATE OF SERVICE: 01/05/2020 CHIEF COMPLAINT: Short of breath, hard chills, concerns about bronchitis. He also complained of a productive cough. HISTORY OF PRESENT ILLNESS: Mr. Schofield is a pleasant 84 [address] patient of Dr[address] Avilez who presented to the Emergency Department with above chief complaints. He tells me this morning that this symptoms started this past Monday with a slight cough. The symptoms progressed to a productive cough on Monday. He tells me that he has a history of COPD and he was concerned when his cough got progressively worse. It started becoming blood tinged. On Monday around 2-3pm. he developed a high fever. He is unsure exactly how high the fever got but he thinks around 102 or 103. He developed hard chills as well. He said that he decided then that he could not wait to see Dr. Avilez on Monday for an appointment and decided to present to the Emergency Department. While in the Emergency Department he did have labs and diagnostic testing performed. The CT of the chest confirmed that the patient did have bilateral lower lobe pneumonia. He did have a flu swab and RSV testing completed, all of those were negative. His WBC was normal per testing. Electrolytes were normal and his procalcitonin was less than 0.05. While in the emergency department he was given Motrin as well as started on Cefepime and Doxycycline, started on Lovenox for DVT prophylaxis. He was also started on IV fluids and given a dose of Solu-Medrol. The patient was admitted for an acute febrile illness. PAST MEDICAL HISTORY: Arthritis Atrial fibrillation Kidney stones Cardiac arrhythmias COPD Dyslipidemia Gout Hypertension Peptic Ulcer disease PAST SURGICAL HISTORY: Vasectomy Tonsillectomy Dental Surgery FAMILY HISTORY: Mother, father, grandmother and grandfather are . Grandmother with breast cancer in the right SOCIAL HISTORY: The patient does have a history of smoking. He stopped smoking several years ago. He denies any alcohol use. Denies any substance abuse. MEDICATIONS: Atorvastatin 20mg daily Symbicort 160/4.5mcg inhalation twice a day Tylenol PM one capsule at bedtime Flecainide 50mg twice a day Cozaar 25mg daily Coumadin 2.5mg Monday, Monday, Monday and Monday. Coumadin 5mg on Monday, and Monday. ALLERGIES: No known drug allergies REVIEW OF SYSTEMS: CONSTITUTIONAL: Fever and chills. No reports night sweats or weight changes. HEENT: No reports of headache, blurred vision. Does complain of nasal drainage and sinus drainage. Denies any sore throat. CARDIOVASCULAR: Does complain of some pleuritic chest pain. Does have a history of irregular rhythm. No orthopnea or Nocturnal dyspnea. Does complain of trace peripheral edema. RESPIRATORY: Chronic dyspnea that has worsened. Chronic shortness of breath. He has had a productive cough. He does have a history of COPD. Does complain of a blood tinged productive cough. GASTROINTESTINAL: No reports of abdominal pain, nausea, vomiting, diarrhea. Denies constipation or blood in the stool or changes in stool consistency. GENITOURINARY: No reports of dysuria, hematuria, nocturia or urinary incontinence. MUSCULOSKELETAL: No reports of unusual muscle pains, joint redness or swelling. NEUROLOGIC: No reports of dizziness, any fatigue or neurological deficits. ENDOCRINE: No reports of diabetes mellitus, increase in thirst, urination or heat or cold intolerance. INTEGUMENT: No reports of rashes, lesions or skin changes. PSYCHIATRIC: No complaints of anxiety, depression or mood changes. PHYSICAL EXAMINATION: GENERAL: Mr. Schofield is alert and oriented. He is in no acute distress. VITAL SIGNS: Blood pressure 125/65, pulse 73, respiratory rate 16, temperature 97.6 and pulse ox 97% on 2 liters per nasal cannula. On telemetry he is running sinus rhythm with a first degree AV block at 75 beats per minute. On admission his temperature was 101 his temperature did reach as high as 102.9 at 19:46. HEENT: Head normocephalic, atraumatic. Pupils equal/reactive to light. Conjunctivae clear. Mucus membranes are moist. NECK: Supple. No lymphadenopathy or thyromegaly. No carotid bruit is auscultated on examination. CARDIOVASCULAR: S1, S2 regular rate and rhythm. No JVD. Trace peripheral edema to his ankles on exam. Pedal pulses are diminished. LUNGS: Diminished throughout. He does have some crackles to the bases bilaterally. Breathing is stable. He is dyspneic with minimal exertion just talking he is noted to dyspneic. He is wearing O2 at 2 liters per nasal canula. ABDOMEN: Soft. Bowel sounds are positive. There is no tenderness on exam. NEUROLOGIC: Cranial nerves 2-12 grossly intact without any overt neurological deficit noted on examination. SKIN: Warm and dry. No rashes, lesions or wounds noted on exam. LABS/DIAGNOSTIC TESTING: Have been reviewed per HPI. CBC his WBC was normal on examination, Hgb 13.4, hct 40.2, plt count normal at 140. On admission his PT was 18.9, INR 2.01 he is on chronic Coumadin, anticoagulation. ABG on admission is O2 saturation was 97, pH 7.477, pCO2 was 32.5, pO2 86, HCO3 is 24, ABG total CO2 25. Base excess was 0. FiO2 % was 21. It does not say but I am assuming this is on room air. On admission his chemistry panel Sodium, Potassium, Chloride was normal. BUN was 15.9,. Creatinine 0.93. His estimated GFR was 77, glucose was mild elevated at 118. Lactic acid was normal at 1.45. BNP NT PRO BNP was 674. Procalcitonin was normal was less at 0.05. Urinalysis was negative with the except of trace hematuria. Influenza A and B and RSV were negative. Chest x-ray was negative with no active cardiopulmonary disease however the CT of the chest did show bilateral lower lobe pneumonia. No mediastinal masses was seen. ASSESSMENT: 1. Bilateral lower lobe pneumonia 2. Fever and chills 3. COPD exacerbation 4. Productive cough of blood tinged sputum 5. History of atrial fibrillation on chronic Coumadin therapy 6. History of congestive heart failure 7. Dyspnea 8. Dyslipidemia 9. Hypertension PLAN: 1. Continue IV antibiotics started in the Emergency Department 2. Nebulizer treatments 3. He will also continue the intervenous fluids as well. 4. Home medications were resumed 5. He is currently on Maxipime and Doxycycline and DUO NEBS 6. He is also on Decadron 4mg IM daily 7. The patient is currently doing better I will report the blood tinged sputum to Dr. Avilez. He does have a sputum gram stain that has been completed. Does showed 2+ WBC, no organisms seen with 1+ gram positive cocci, 1+ gram negative rods and fungal elements not present. I will discuss the findings with Dr. Avilez. Further orders and recommends per Dr. Avilez. TIME SPENT: GREATER THAN 65 MINUTES MTDD
--- NOTE | 2020-01-06 14:35 | PN ---
DATE OF SERVICE: 01/05/20 @ 9:30 P.M. - ADMISSION NOTE SOURCE OF HISTORY: The patient. OBJECTIVE: The patient is alert and did recognize me. I asked him about what happened to him and he told me that he had a cough on Monday and continued on Monday but denies any headache, muscle aches or fever. He also denied any burning on urination. Today however he had chills followed by fever and when he presented to the emergency room his temperature was 104.9. Initial temperature determination was 101.0. This patient was given Tylenol and Ibuprofen. The temperature did slowly come down to 103.2 and 102.9. Pulse on admission to the emergency room was 96, blood pressure 216/75. The vital signs on admission to the floor at 8:51 p.m. showed a temperature 98.1, pulse 124, blood pressure 148/85. Blood cultures were obtained from the emergency room and the patient received Doxycycline 100 mg as well as Ceftriaxone 2 gm intravenously. Ceftriaxone is replaced and covered with Cefepime to include Pseudomonas. Chest x-ray did not indicate any pneumonia but the CT does indicate bilateral pneumonia. CBC done 4:40 p.m. showed a WBC of 5,870, RBC 4.52, hemoglobin 13.4, hematocrit 40.2, platelet count 140, differential normal, chemistry normal. Electrolytes c02 24.9, anion gap 11.12, BUN 15.9, creatinine 0.93, EGFR 77, blood sugar 118.5, lactic acid 1.45, calcium uric acid liver panel normal. No NT-pro-BNP. This patient's pro-BNP before was 680. Procalcitonin is less than 0.05. The patient seemed to have some confusion when he presented to the emergency room. He is alert and oriented now and did recognize and follow verbal commands and was able to give a history. He however was not oriented to the day. He thought today was Monday and he started having problems Monday. I told him that today is still Monday. Lungs had rales in both lung dewey, more on the left side with no wheezing. Heart is audible and slightly irregular. He also has rales anteriorly. Chest CT does not indicate any pulmonary vascular congestion. I think the changes in the lungs are secondary to pneumonic process rather than pulmonary vascular congestion. The doctor initially told me that WBC was normal and that the chest x-ray was negative. I told him that I needed some reasoning as to the temperature of 104. Acute febrile illness do come with acute bacterial pneumonia and/or acute febrile condition probably viral. He did not tell me about the chest CT when I suggested that this patient should have a chest CT. I also suggested a procalcitonin and he was telling me that the procalcitonin as well as lactic acid are about the same. I told him that I needed a procalcitonin to guide me in the treatment. I did suggest starting Tamiflu since we did not have any evidence of any acute processes at the time of my conversation with him. I discontinued the Tamiflu, discontinued also the Lovenox since this patient is on Warfarin already. The INR is more or less therapeutic. I did order a sputum for gram stain and culture. The sputum seemed to be brownish in color. Also ordered an NT-pro-BNP and will see what the results are. This patient however does not appear to be in congestive failure. I discontinued Ibuprofen. I left the Tyenol as p.r.n. for fever of 101. MTDD
[2020-01-06] MEDS ORDERED: INFUVITE ADULT IV ONE (16:21)
[2020-01-06] MEDS: INFUVITE ADULT 10 ML in D5%-1/2NS-KCL 20 MEQ/L IV SOL 1,000 ML IV SCH (16:30)
[2020-01-06] MEDS: LIPITOR PO SCH (16:33)
[2020-01-06] MEDS ORDERED: COUMADIN PO ONE (17:00)
[2020-01-06] MEDS ORDERED: COUMADIN PO SCH (17:00)
[2020-01-06] MEDS ORDERED: POTASSIUM CHLORIDE 20 MEQ VIAL- ADDITIVE ONLY 20 MEQ in SODIUM CHLORIDE 1,000 ML IV SCH (19:00)
[2020-01-07] MEDS: MAXIPIME 2 GM/50 ML D5W 2 GM/50 ML BAG IV SCH ×3 (04:58→21:07)
[2020-01-07 05:28] LABS: HEMATOCRIT 36.9 % (42.0-52.0)
[2020-01-07] MEDS ORDERED: COZAAR PO SCH (09:00)
[2020-01-07] MEDS ORDERED: DECADRON 4 MG/ML SDV IM SCH (09:00)
[2020-01-07] MEDS: TAMBOCOR PO SCH ×2 (09:10→21:06)
[2020-01-07] MEDS: DOXY-100 100 MG in SODIUM CHLORIDE 100 ML IV SCH ×2 (09:10→22:28)
[2020-01-07] MEDS: COZAAR PO SCH ×2 (09:20→21:07)
--- NOTE | 2020-01-07 09:29 | PN ---
DATE OF SERVICE: 01/07/2020 SUBJECTIVE: Today his vital signs are stable. Blood pressure is elevated. Blood pressure 174/79, pulse rate 75, respiratory rate 15, temperature 97.7 and O2 saturation 95% on 2 liters per nasal cannula. Total intake for the 24 hour period was 2174. His total output was 1025ml. He is currently being treated for bilateral pneumonia of both lower lobes. LUNGS: Still has crackles to his lower lobes and diminished. Still has productive cough. HEART: Regular rate and rhythm. On telemetry is he running since rhythm with a first degree AV block at 79 beats per minute. He has no lower extremity swelling on examination. Per diagnostics his WBC is elevated most likely due to his steroids. His WBC is 14.61. Hgb is 12, hct 36.9, plt count 135. Chemistry panel sodium and potassium normal. Chloride and carbon dioxide are normal. BUN is 25, creatinine 0.93, GFR stable at 77. Glucose is 126. LFTs are normal. His IV fluids have been stopped. He did complain of increased urination through the night as Dr. Avilez did decide to stop the IV fluids. His INR is stable. He continues on the current dose of Coumadin. He continues on Doxycycline IV as well as Maxipime intervenously for the treatment of the bilateral pneumonia. He continues on DUO NEBS every 6 hours. The patient does report that his breathing has improved. He is still notably short of breath and dyspneic with minimal exertion. Further orders and recommendations per Dr. Avilez. [facility]
[2020-01-07] MEDS: LIPITOR PO SCH (16:36)
[2020-01-07] MEDS: COUMADIN PO SCH (16:36)
[2020-01-07] MEDS ORDERED: AMBIEN PO STA (19:26)
[2020-01-08 05:33] LABS: HEMATOCRIT 36.9 % (42.0-52.0)
[2020-01-08] MEDS: MAXIPIME 2 GM/50 ML D5W 2 GM/50 ML BAG IV SCH ×3 (06:00→20:24)
[2020-01-08] MEDS: COZAAR PO SCH ×2 (08:07→20:24)
[2020-01-08] MEDS: TAMBOCOR PO SCH ×2 (08:07→20:24)
[2020-01-08] MEDS: DOXY-100 100 MG in SODIUM CHLORIDE 100 ML IV SCH ×2 (08:07→22:07)
--- NOTE | 2020-01-08 10:43 | PN ---
DATE OF SERVICE: 01/08/20 SUBJECTIVE: Today the patient's vital signs are stable. Blood pressure has been elevated. This morning his blood pressure is 171/75. This is at 5:41 a.m. Last night it was 174/72 and then prior to that it was 164/82. I am going to review his blood pressure medicines and also discussed this with Dr. Avilez to see if maybe adjustment in blood pressure medicines may need to be done however he has been on steroids and this could be affecting his blood pressure. We may need to be just doing close blood pressure monitoring as an outpatient and see if his blood pressure stays elevated as an outpatient. OBJECTIVE: Temperature 98.4, pulse rate 64, respiratory rate 20. He has been afebrile the last 24 hours. Today his temperature is 98.4. 02 saturation is 100%. This is on room air calculated. Lungs - he does have mild congestion to his upper lung dewey otherwise just diminished. Heart is regular rate and rhythm. He did have some mild edema to his lower extremities. On telemetry he is running sinus rhythm at 63 bpm. He has good intake and output. He is eating well. He does report that he is breathing much better and he feels like it is returning more to a baseline as far as the shortness of breath and dyspnea. As far as diagnostics, his white count is returning down to a more normal range at 11.55. Hemoglobin/hematocrit are stable. Platelet count is normal at 148. In regards to his chemistry panel, his electrolytes are stable. His GFR is stable. No new imaging to report. We will continue his IV antibiotics at this time. He is currently on Cozaar 50 mg twice a day. He also takes Flecainide which is the Tambocor 50 mg twice a day. He does have a history of congestive heart failure. He also has a history of atrial fibrillation and that is why he is on the Flecainide. He is currently running sinus rhythm at the moment. He is currently being treated for bilateral pneumonia. He is responding well to the antibiotics and breathing treatments. Again, I will discuss blood pressure with Dr. Avilez. He is improving clinically. Further orders and recommendations per Dr. Avilez. [facility]
[2020-01-08] MEDS: LIPITOR PO SCH (17:15)
[2020-01-08] MEDS: COUMADIN PO SCH (17:15)
[2020-01-08] MEDS ORDERED: AMBIEN PO STA (21:52)
[2020-01-09] MEDS: MAXIPIME 2 GM/50 ML D5W 2 GM/50 ML BAG IV SCH ×2 (04:36→12:55)
[2020-01-09 06:11] LABS: HEMATOCRIT 38.5 % (42.0-52.0)
[2020-01-09] MEDS: TAMBOCOR PO SCH (09:11)
[2020-01-09] MEDS: COZAAR PO SCH (09:11)
[2020-01-09] MEDS: DOXY-100 100 MG in SODIUM CHLORIDE 100 ML IV SCH (09:11)
--- NOTE | 2020-01-09 09:57 | PN ---
DATE OF SERVICE: 01/09/2020 SUBJECTIVE: This morning his vital signs are stable. Temperature 98, pulse 65, respiratory rate 18, blood pressure has come down last several checks, this morning it was 156/73 and at 4:00 this morning 148/76 and then at 2:00 this morning 145/79. His oxygen is 96% on room air. When I went to see him this morning he was up walking in the hallway. He was not dyspneic. He reports that his breathing is much better. EXAM: LUNGS: Diminished. There is no wheezing or congestion. HEART: Regular rate and rhythm. He continues to run sinus rhythm at 61 beats per minute on Telemetry. DIAGNOSTIC: His CBC is normal, WBC 6.74, hgb and hct are stable at 12.5 and 38.5. His plt count 148. Today his INR is 2.32. Sodium 137.8, Potassium 3.88, BUN 24.7, creatinine 0.89, glucose 96.4, ALT slightly elevated at 51.6. I did review orders. He is planned to have a 2D echocardiogram today per Dr. Lennon. He continues on DUO NEBS. Maxipime and Doxycycline intervenously. He does feel like he is ready to go home. I will discuss this with Dr. Avilez regarding when he wants him to be discharged to home. Again he does have a 2D echocardiogram scheduled today per Dr. Lennon. He is currently being treated for pneumonia of the lower lobes. He is responding well to treatment and feeling much better. There is no repeat chest x-rays on order at this time. Again I will discuss discharged orders with Dr. Avilez regarding today or tomorrow. Further orders and recommendation per Dr. Avilez. [facility]
--- NOTE | 2020-01-09 09:58 | PN ---
DATE OF SERVICE: 01/06/2020 SUBJECTIVE: Mr. Schofield was admitted on 01/05/2020 with a diagnosis of bilateral lower lobe pneumonia. He was admitted through the emergency department. He was started on Maxipime and Doxycycline as well as DUO NEBS and Decadron intermuscularly daily. On the date of 01/06/2020 he had complaints of some blood tinged sputum. Sputum cultures and gram stain have been obtained. EXAMINATION: HEART: Regular rate and rhythm. He did have some trace peripheral edema to his lower extremities. LUNGS: Did have some crackles to his bases bilateral. His breathing was stable. He was dyspneic with minimal exertion. He was wearing O2 at 2 liters per nasal canula. VITALS: Temperature 97.6, pulse 73, blood pressure 125/65, respiratory rate 16 and oxygen saturation 97% on 2 liters nasal canula. Telemetry he was running sinus rhythm with a first degree AV block at 79 beats per minute. [facility]
[2020-01-09 14:21] VITALS: BP 176/65; TEMP 98.3
--- NOTE | 2020-01-09 14:30 | CONS ---
DATE OF SERVICE: 01/08/2020 CONSULT FOLLOWUP SUBJECTIVE: 84 year old white male hospitalized with acute viral syndrome, acute febrile illness. The patient says that he is feeling a lot better. The is in the room. REVIEW OF SYSTEMS: CONSTITUTIONAL: No night sweats. Mild fatigue. No fever or chills. HEENT: Eyes: No visual changes. No eye pain. No eye discharge. ENT: No runny nose. No epistaxis. No sinus pain. No sore throat. No odynophagia. No ear pain. No congestion. RESPIRATORY: No cough, no congestion. No hemoptysis. CARDIOVASCULAR: No angina symptoms. No CHF symptoms. No atypical chest pain for CAD. No palpitations. No shortness of breath. GASTROINTESTINAL: No abdominal pain. No nausea or vomiting. No diarrhea or constipation. No hematemesis. No hematochezia. GENITOURINARY: No urgency. No frequency. No dysuria. No hematuria. No obstructive symptoms. No discharge. No pain. No significant abnormal bleeding. MUSCULOSKELETAL: No musculoskeletal pain. No joint swelling. No arthritis. NEUROLOGICAL: No headache. No neck pain. No syncope. No seizures. No dizziness. PSYCHIATRIC: Not anxious. No depression. No suicidal thoughts. No homicidal thoughts. SKIN: No rash. No lesions. No wounds. ENDOCRINE: No unexplained weight loss. No weight gain. HEMATOLOGIC/LYMPHATIC: No anemia. No purpura. No petechiae. No prolonged or excessive bleeding. No palpable lymph nodes. PHYSICAL EXAMINATION: VITAL SIGNS: Temperature 98.4, pulse 64, respiratory rate 18, blood pressure 170/70 and pulse ox 100%. HEENT: Head normocephalic, atraumatic. Eyes: Extraocular muscles are intact. Pupils are equal, round and reactive to light and accommodation. Ears: No lesions. Nose appeared normal. Throat: No exudate or erythema. NECK: Supple. No JVD, no carotid bruit. No lymphadenopathy or thyromegaly. LUNGS: Clear to auscultation. Percussion note normal. Chest symmetrical. HEART: S1, S2, no S3. No murmur. No cyanosis or clubbing. No ascites. Pulses: Dorsalis pedis and posterior tibial pulses +1 to +2 bilaterally. ABDOMEN: Soft. Nontender. Bowel sounds active. No CVA tenderness. No mass felt. EXTREMITIES: No edema. Full range of motion of all extremities, equal. NEUROLOGIC: No focal deficit. Cranial nerves II through XII are grossly intact. No headache, no double vision or headache. SKIN: Not dry. Intact. Turgor - normal. LYMPHATIC: No palpable lymph nodes/no lymphedema. MUSCULOSKELETAL: Normal joints with no swelling. Muscle tone is normal. LABS: Hgb 11.9, hct 36, WBC 11,500 normal differential, creatinine 0.8, BUN 24, potassium 4.3 ASSESSMENT: 1. Acute viral syndrome 2. Acute febrile illness seems to be resolving RECOMMENDATIONS: 1. Advised to continue the oral medication as medication 2. Will do echocardiogram 2DM Mode in the morning CONDITION: Stable. CARDIOVASCULAR STATUS: Stable no evidence of CHF or coronary insufficiency MTDD
--- NOTE | 2020-01-09 14:33 | CONS ---
DATE OF SERVICE: 01/07/2020 CONSULT FOLLOWUP SUBJECTIVE: 84 year old white male hospitalized with acute viral syndrome and febrile illness. The patient's condition seems to be improving. His cardiovascular status seems to be stable. There is no evidence of CHF clinically. REVIEW OF SYSTEMS: CONSTITUTIONAL: No night sweats. No fatigue, malaise, lethargy. No fever or chills. HEENT: Eyes: No visual changes. No eye pain. No eye discharge. ENT: No runny nose. No epistaxis. No sinus pain. No sore throat. No odynophagia. No ear pain. No congestion. RESPIRATORY: No cough, no congestion. No hemoptysis. CARDIOVASCULAR: No angina symptoms. No CHF symptoms. No atypical chest pain for CAD. No palpitations. No shortness of breath. GASTROINTESTINAL: No abdominal pain. No nausea or vomiting. No diarrhea or constipation. No hematemesis. No hematochezia. GENITOURINARY: No urgency. No frequency. No dysuria. No hematuria. No obstructive symptoms. No discharge. No pain. No significant abnormal bleeding. MUSCULOSKELETAL: No musculoskeletal pain. No joint swelling. No arthritis. NEUROLOGICAL: No headache. No neck pain. No syncope. No seizures. No dizziness. PSYCHIATRIC: Not anxious. No depression. No suicidal thoughts. No homicidal thoughts. SKIN: No rash. No lesions. No wounds. ENDOCRINE: No unexplained weight loss. No weight gain. HEMATOLOGIC/LYMPHATIC: No anemia. No purpura. No petechiae. No prolonged or excessive bleeding. No palpable lymph nodes. PHYSICAL EXAMINATION: VITAL SIGNS: Temperature 98.6, pulse 70, respiratory rate 15 and blood pressure 160/70 with pulse ox 100% on room air. HEENT: Head normocephalic, atraumatic. Eyes: Extraocular muscles are intact. Pupils are equal, round and reactive to light and accommodation. Ears: No lesions. Nose appeared normal. Throat: No exudate or erythema. NECK: Supple. No JVD, no carotid bruit. No lymphadenopathy or thyromegaly. LUNGS: Decreased breath sounds but clear to auscultation. Percussion note normal. Chest symmetrical. HEART: S1, S2, no S3. No murmur. No cyanosis or clubbing. No ascites. Pulses: Dorsalis pedis and posterior tibial pulses +1 to +2 bilaterally. ABDOMEN: Soft. Nontender. Bowel sounds active. No CVA tenderness. No mass felt. EXTREMITIES: No edema. Full range of motion of all extremities, equal. NEUROLOGIC: No focal deficit. Cranial nerves II through XII are grossly intact. No headache, no double vision or headache. SKIN: Not dry. Intact. Turgor - normal. LYMPHATIC: No palpable lymph nodes/no lymphedema. MUSCULOSKELETAL: Normal joints with no swelling. Muscle tone is normal. ASSESSMENT: 1. No evidence of CHF/CAD or coronary insufficiency 2. Cardiovascular status stable 3. Acute viral syndrome with febrile illness seems to be resolving MTDD
--- NOTE | 2020-01-13 10:42 | DS ---
DATE OF SERVICE: 01/09/20 FINAL DIAGNOSIS: 1. BILATERAL LOWER LOBE PNEUMONIA WITH PRESENTATION OF FEVER AND CHILLS ON ADMISSION. 2. COPD EXACERBATION. 3. PRODUCTIVE COUGH OF BLOOD-TINGED SPUTUM DURING THIS STAY. 4. HISTORY OF ATRIAL FIBRILLATION ON CHRONIC COUMADIN THERAPY. 5. HISTORY OF CONGESTIVE HEART FAILURE. HE DID HAVE A 2D ECHOCARDIOGRAM COMPLETED DURING THIS STAY AND EJECTION FRACTION WAS EVALUATED WITH THIS ECHOCARDIOGRAM. 6. DYSPNEA. 7. DYSLIPIDEMIA. 8. HYPERTENSION. MEDICINES WERE ADJUSTED AT DISCHARGE FOR HIS BLOOD PRESSURE. HIS BLOOD PRESSURE DID CONSISTENTLY RUN A BIT ON THE ELEVATED SIDE THROUGHOUT HIS HOSPITAL COURSE. DISCHARGE INSTRUCTIONS: His followup appointment will be scheduled in one week with Dr. Avilez. Further orders and recommendations will be discussed at that appointment. NEW PRESCRIPTIONS: Dr. Avilez did tell me this morning he did write prescriptions for Doxycyline as well as Cefdinar for two additional days for patient to take at home. He also increased his Losartan to 50 mg twice a day. DIET INSTRUCTIONS: He is on a Coumadin diet. He does follow this diet pretty strictly. His INR stays fairly stable and this is managed by his [employer] developer in [place]. He is encouraged to eat a Heart Healthy diet. This was discussed at length during his hospital stay. ACTIVITY: He has been encouraged to gradually increase normal activity level. HOSPITAL COURSE: I saw the patient this morning and discussed discharge with him. He was very eager to be discharged to home. He felt very well to be discharged to home. Dr. Avilez did evaluate the patient as well and felt that he was ready to be discharged to home as well. However, Dr. Lennon wanted to do a 2D echocardiogram on him prior to being discharged to home. I do not have the results of the 2D echocardiogram in the compluter; however, Dr. Avilez did discuss those results with me. He says that Dr. Lennon did call him and discussed these results of the echocardiogram this morning. He says that the 2D echocardiogram was okay and there was not much change from previous echocardiogram. In addition, Chandu To is a pleasant 84-year-old patient of Dr. Avilez. He did present to the Emergency Department with concerns for a viral syndrome, high fever and chills. He states that the symptoms started the Monday prior to him coming to the Emergency Department. He does have a history of COPD. He became concerned as the cough continued to get progressively worse and then to the point of blood-tinged. He did tell me that he had a fever that got as high as 102 and 103 and that is what really prompted him to come to the Emergency Department. He said he developed hard chills. He was planning on seeing Dr. Avilez in the office on Monday but he ended up not being able to make it and therefore he decided to present to the Emergency Department. He did have labs and diagnostic testing performed. A CT of the chest confirmed that the patient did have bilateral lower lobe pneumonia. He did have a flu swab and an RSV testing completed. All of those were negative. His white count was normal per testing. Electrolytes were normal and his procalcitonin was less than 0.05. While in the Emergency Department he was given Motrin as well as Cefepime and Doxycycline. He continued on Decadron intramuscularly daily throughout his hospital course. He did receive Solu-Medrol in the Emergency Department. Mr. Schofield is on anticoagulation because he does have a history of atrial fibrillation. He has had several cardioversions and he has not returned back into atrial fibrillation after he converted. He had several attempts after the cardioversion and then medication management. He remains on chronic Coumadin prescription as well as Flecanide. He has maintained his normal sinus rhythm. He does see Dr. Granger in [place]. Mr. Schofield did progressively improve during this hospital course. He had no further fevers. His breathing was much better. When I saw him this morning he was up in the hallway walking with very little shortness of breath and said it was back to baseline. PERTINENT LABS AND DIAGNOSTIC TESTING: On admission, his white count was normal. It did spike throughout the hospital course but was normal at discharge. Hemoglobin and hematocrit remained stable as well as platelet count also remained stable. Electrolytes within normal limits. GFR normal at 81. The chest x-ray did not show any acute disease, however, the CT of the chest did show bilateral lower lobe pneumonia. TIME SPENT: More than 30 minutes. NIVIA
--- NOTE | 2020-01-13 11:23 | ECHO2D ---
Date of Exam: 01/09/2020 Ordering Physician: DR. CALOS LIND Room #: 115 Reason for Echo: HTN, CHF M-Mode Normal Adult Results LV Dimensions Normal Adult Results AoV Opening excursions >1.6 >1.6 LVEDD-base- 3.5-5.8 4.5 Ao root dimensions 2.0-3.7 2.9 LVESD-base- 3.1-4.6 L. Atrium dimensions 1.9-3.8 5.4 Post. Wall thickness 0.8-1.1 1.1 IV septum (thickness) 0.7-1.2 1.2 Post. Wall excursion 0.72-1.3 NORMAL Septal motion NORMAL Systolic motion R. Ventricular cavity 1.5-2.0 NORMAL LVEF 60% 59% Paradoxical septal wall motion NORMAL 2-D : 2-D M Mode Echocardiogram was performed using apical four chamber and left parasternal long and short axis views. Mitral, tricuspid and aortic valves appear to be normal. Contractility of the left ventricle seems to be normal, so is the cavity size. ENLARGED LEFT ATRIAL CAVITY. Aortic root appears to be normal. There is no pericardial effusion. There is no thrombus noted in the left ventricle or left atrial cavity. No mitral valve prolapse noted. M-MODE: MV: NORMAL AV: NORMAL TV: NORMAL PV: CHAMBER SIZE: ENLARGED LEFT ATRIAL CAVITY WALL MOTION: NORMAL PERICARDIUM: NORMAL INTERPRETATION: 1. LEFT VENTRICULAR HYPERTROPHY (BORDERLINE) 2. ENLARGED LEFT ATRIAL CAVITY 3. NORMAL VALVES 4. NORMAL LEFT VENTRICULAR CONTRACTILITY MTDD
--- NOTE | 2020-01-17 09:57 | CONS ---
DATE OF CONSULTATION: 01/06/20 REASON FOR CONSULTATION: Fever, atrial fibrillation. HISTORY OF PRESENT ILLNESS: 84-year-old White male presented with congestion, cough times one week. Sudden onset of fever prompting ER visit. Temperature of 101 on arrival and up to 104 in the Emergency Room. 02 sat 93% on room air. REVIEW OF SYSTEMS: CONSTITUTIONAL: Positive for fever. No night sweats. No fatigue, malaise, lethargy. No chills. HEENT: Eyes: No visual changes. No eye pain. No eye discharge. ENT: No sinus drainage. No epistaxis. No sinus pain. No sore throat. No odynophagia. No ear pain. No congestion. RESPIRATORY: Positive for cough. Hemoptysis - bloody at times with cough. No shortness of breath. CARDIOVASCULAR: No angina symptoms. No CHF symptoms. No atypical chest pain for CAD. No palpitations. No orthopnea. GASTROINTESTINAL: No abdominal pain. No nausea or vomiting. No diarrhea or constipation. No hematemesis. No hematochezia. GENITOURINARY: No urgency. No frequency. No dysuria. No hematuria. No obstructive symptoms. No discharge. No pain. No significant abnormal bleeding. MUSCULOSKELETAL: No musculoskeletal pain. No joint swelling. NEUROLOGICAL: No headache. No neck pain. No syncope. No seizures. No dizziness. PSYCHIATRIC: Not anxious. No depression. No suicidal thoughts. No homicidal thoughts. SKIN: Warm and dry. No rash. No lesions. No wounds. ENDOCRINE: No unexplained weight loss. No weight gain. HEMATOLOGIC/LYMPHATIC: No anemia. No purpura. No petechiae. No prolonged or excessive bleeding. No palpable lymph nodes. MEDICATIONS: Coumadin (alternates doses 5 mg and 2.5 mg) Losartan Tambicor Tylenol p.m. with Benadryl Symbicort Atorvastatin ALLERGIES: NKDA PAST MEDICAL/SURGICAL HISTORY: Atrial fibrillation (Coumadin) COPD History of pneumonia Dyslipidemia Tonsillectomy Hemorrhoidectomy Cataract SOCIAL/PERSONAL/FAMILY HISTORY: . History of smoking, stopped 11 years ago. PHYSICAL EXAMINATION: GENERAL: The patient is awake, alert, oriented times three. VITAL SIGNS: Pulse 73, BP 125/67, temperature 97.6, 02 sat 97% on 2L. BMI 32.5. Weight 217. HEENT: Head normocephalic, atraumatic. Eyes: Extraocular muscles are intact. Pupils are equal, round and reactive to light and accommodation. Ears: No lesions. Nose appeared normal. Throat: No exudate or erythema. NECK: Supple. No JVD, no carotid bruit. No lymphadenopathy or thyromegaly. LUNGS: Decreased breath sounds, positive wheezing, good air entry. Percussion note normal. Chest symmetrical. HEART: S1, S2, no S3. No murmurs. No cyanosis or clubbing. No ascites. Pulses: Dorsalis pedis and posterior tibial pulses +1 bilaterally. ABDOMEN: Soft. Nontender. Bowel sounds active. No CVA tenderness. No mass felt. EXTREMITIES: No edema. Full range of motion of all extremities, equal. NEUROLOGIC: No focal deficit. Cranial nerves II through XII are grossly intact. No headache, no double vision or headache. SKIN: Warm and dry. Intact. Turgor - normal. LYMPHATIC: No palpable lymph nodes/no lymphedema. MUSCULOSKELETAL: Normal joints with no swelling. Muscle tone is normal. ASSESSMENT: 1. ACUTE FEBRILE ILLNESS 2. HISTORY OF CHF AND CAD 3. HISTORY OF ATRIAL FIBRILLATION LABS: 01/05/20 WBC 5.87, hemoglobin 13.4, platelets 140, platelets 40.2. 01/05/20 Sodium 137.0, chloride 105.2, BUN 15.9, glucose 118, K+ 4.22, c0 24.9, creatinine 0.93. INR 1.65 (01/06), RA AB% sat, pH 7.477, HC03 24, pc02 32.5, p02 86, Total C02 25. NT-pro-BNP 674.000, lactic acid 1.45, procalcitonin less than 0.05. Chest CT 01/05/20 bilateral lower lobe pneumonia. UA negative. Influenza A and B negative. RECOMMENDATIONS: 1. Cardiovascular status stable. 2. No CHF/CAD symptoms. 3. Agree with management. 4. Positive for URI. 5. 1 cc Decadron IM. 6. Echocardiogram later on. 7. No need for Stress test. Thanks for referral. [facility]
== END 2020-01-09 15:10 | disposition home or self-care (01) | DRG 194 ==
LOC: ED 15:44 → MEDSURG B 19:47
PROVIDERS: ADMIT General Practice; ATTEND General Practice